=== PATIENT | male | born 1990 | race Two or more races ===

== ENCOUNTER 2017-02-26 19:19 | Emergency (ER) | payer OTHER ==
[~2017-02-26] VITALS: Ht 172.7 cm; Wt 81.6 kg
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
[2017-02-26] MEDS ORDERED: IV NS 0.9% 1,000 ML BAG IV ONE (19:30)
[2017-02-26] MEDS ORDERED: LORAZEPAM INJ 2 MG/ML VIAL IV ONE (19:30)
--- NOTE | 2017-02-26 19:31 | NUR ---
LAURA MAPLE PRODUCTS MAKER AT BEDSIDE FOR EVAL.
[2017-02-26] MEDS ORDERED: LORAZEPAM INJ 2 MG/ML VIAL ONE (19:39)
[2017-02-26] MEDS ORDERED: IV SET PRIMARY 1 EA INFUS.SET MC ONE (19:39)
[2017-02-26] MEDS ORDERED: IV NS 0.9% 1,000 ML ONE (19:39)
--- NOTE | 2017-02-26 19:40 | NUR ---
IV LINE STARTED BLOOD DRAWN AND SENT TO LAB.
[2017-02-26 19:58] LABS: BASOPHILS # (AUTO) 0.1 /CMM (0.0-0.2); BASOPHILS % (AUTO) 0.5 % (0.0-2.0); EOSINOPHILS # (AUTO) 0.1 /CMM (0.0-0.7); EOSINOPHILS % (AUTO) 0.9 % (0.0-6.0); HEMATOCRIT 43 % (39-51); HEMOGLOBIN 14.3 g/dL (13.5-17.5); LYMPHOCYTES # (AUTO) 2.4 /CMM (0.8-4.8); LYMPHOCYTES % (AUTO) 15.6 % (20.0-44.0); MEAN CORPUSCULAR HEMOGLOBIN 29 PG (26.0-33.0); MEAN CORPUSCULAR HGB CONC 34 g/dl (31.0-36.0); MEAN CORPUSCULAR VOLUME 87 fL (80-96); MONOCYTES # (AUTO) 1.1 /CMM (0.1-1.30); MONOCYTES % (AUTO) 7.2 % (2.0-12.0); NEUTROPHILS # (AUTO) 11.9 /CMM (1.8-8.9); NEUTROPHILS % (AUTO) 75.8 % (43.0-81.0); PLATELET COUNT (AUTO) 234 /CMM (150-450); RDW COEFFICIENT OF VARIATION 13.6 (11.5-15.0); WHITE BLOOD COUNT (AUTO) 15.6 K/uL (4.3-11.0)
[2017-02-26 20:08] LABS: CALCIUM, SERUM 9.3 mg/dL (8.5-10.1); POTASSIUM 3.7 mmol/L (3.5-5.1)
[2017-02-26 20:26] LABS: INR 0.93 (0.87-1.13); PROTHROMBIN TIME 9.9 SECS (9.5-12.7)
--- NOTE | 2017-02-26 21:28 | NUR ---
PT TO RADIOLOGY FOR HEAD CT SCAN VIA [facility].
--- NOTE | 2017-02-26 22:34 | NUR ---
Patient discharged to home in stable condition. Written and verbal after care instructions given. Patient verbalizes understanding of instruction.IV removed. Catheter intact and site benign. Pressure and 4x4 applied to site. No bleeding noted.
[2017-02-26 22:38] VITALS: BP 115/56
== END 2017-02-26 22:39 | disposition home or self-care (01) ==
LOC: ER 19:20
DX: G40.909 Epilepsy, unspecified, not intractable, without status epilepticus (principal); R79.1 Abnormal coagulation profile
CPT/HCPCS: 36415; 70450; 80048; 80185; 82542; 85025; 85730; 96374; 99285; A4606; J2060; J7030; Z7610

== ENCOUNTER 2017-07-03 17:26 | Inpatient (IN) | payer OTHER ==
[~2017-07-03] VITALS: Ht 172.7 cm; Wt 74.4 kg
[2017-07-03] MEDS ORDERED: PROPOFOL 100 ML IV ONE ×2 (17:39→21:09)
[2017-07-03] MEDS: PROPOFOL 100 ML IV PRN ×2 (17:45→23:51)
[2017-07-03] MEDS ORDERED: SUCCINYLCHOLINE CHLORIDE 20 MG/ML VIAL IV ONE (18:00)
[2017-07-03] MEDS ORDERED: LEVETIRACETAM (500MG) 1,000 MG in IV NS 0.9% 100 ML IV SCH (18:00)
[2017-07-03] MEDS ORDERED: MIDAZOLAM HCL 100 MG in IV NS 0.9% 80 ML IV PRN (18:00)
[2017-07-03] MEDS ORDERED: ETOMIDATE 2 MG/ML VIAL IV ONE (18:00)
[2017-07-03] MEDS ORDERED: IV NS 0.9% 1,000 ML BAG IV ONE (18:00)
[2017-07-03 18:11] LABS: BASOPHILS # (AUTO) 0.1 /CMM (0.0-0.2); BASOPHILS % (AUTO) 0.5 % (0.0-2.0); EOSINOPHILS % (AUTO) 0.2 % (0.0-6.0); HEMATOCRIT 44 % (39-51); HEMOGLOBIN 14.2 g/dL (13.5-17.5); LYMPHOCYTES # (AUTO) 1.2 /CMM (0.8-4.8); MEAN CORPUSCULAR HEMOGLOBIN 29 PG (26.0-33.0); MEAN CORPUSCULAR HGB CONC 33 g/dl (31.0-36.0); MEAN CORPUSCULAR VOLUME 89 fL (80-96); MONOCYTES # (AUTO) 0.9 /CMM (0.1-1.30); MONOCYTES % (AUTO) 4.3 % (2.0-12.0); NEUTROPHILS # (AUTO) 17.8 /CMM (1.8-8.9); PLATELET COUNT (AUTO) 219 /CMM (150-450); RDW COEFFICIENT OF VARIATION 13.4 (11.5-15.0); RED BLOOD CELL COUNT(AUTO) 4.93 MIL/uL (4.5-6.0)
[2017-07-03 18:14] LABS: APPEARANCE,URINE Clear (CLEAR); BILIRUBIN,URINE Negative (NEGATIVE); BLOOD, URINE Moderate Ery/uL (NEGATIVE); COLOR,URINE Yellow (YELLOW); KETONES,URINE Negative (NEGATIVE); LEUKOCYTE ESTERASE ,URINE Negative (NEGATIVE); NITRITE, URINE Negative (NEGATIVE); PROTEIN,URINE 100 mg/dl (NEGATIVE); UGLUCOSE Negative (NEGATIVE); UROBILINOGEN,URINE 0.2 EU/dL (0.2)
[2017-07-03 18:23] LABS: CALCIUM, SERUM 7.9 mg/dL (8.5-10.1); CARBON DIOXIDE 15 mmol/L (21-32); CHLORIDE 98 mmol/L (98-107); CREATININE 1.2 mg/dL (0.6-1.3); GLUCOSE 168 mg/dL (74-106); POTASSIUM 4.8 mmol/L (3.5-5.1); SODIUM SERUM 134 mmol/L (136-145); UREA NITROGEN, BLOOD 10 mg/dL (7-18)
[2017-07-03] MEDS ORDERED: BACL20TA PO (18:24)
[2017-07-03] MEDS ORDERED: LEVE500T20 PO (18:24)
[2017-07-03] MEDS ORDERED: MIRT15TA7 PO (18:24)
[2017-07-03 18:25] LABS: BACTERIA,URINE Rare /HPF (None Seen); RBC,URINE NONE SEEN /HPF (0-2); SQUAMOUS EPITHELIAL CELL,UR Few /HPF (None Seen); WBC,URINE NONE SEEN /HPF (0-3)
[2017-07-03 18:27] LABS: PROTHROMBIN TIME 10.4 SECS (9.5-12.7)
[2017-07-03 18:29] LABS: ALANINE AMINOTRANSFERASE 18 U/L (12-78); ALKALINE PHOSPHATASE 86 U/L (46-116); ASPARTATE AMINOTRANSFERASE 20 U/L (15-37); BILIRUBIN,DIRECT 0.1 mg/dL (0.0-0.2); BILIRUBIN,TOTAL 0.4 mg/dL (0.2-1.0); TOTAL PROTEIN, SERUM 7.4 g/dL (6.4-8.2)
[2017-07-03 18:30] LABS: TROPONIN I < 0.017 ng/mL (0.00-0.056)
[2017-07-03] MEDS ORDERED: KEY,NONCONTROL,TO KEEP IN PYXI 1 EA MC ONE (19:59)
[2017-07-03 20:02] VITALS: BP 111/64
[2017-07-03] MEDS ORDERED: CALCIUM CHLORIDE 1,000 MG/10 ML DISP.SYRIN IV ONE (20:30)
[2017-07-03] MEDS ORDERED: HYDROCODONE/APAP 5/325MG 1 EACH TABLET PO PRN (20:30)
[2017-07-03] MEDS ORDERED: ZOLPIDEM TARTRATE 5 MG TABLET PO PRN (20:30)
[2017-07-03] MEDS ORDERED: LEVETIRACETAM (500MG) 500 MG in IV NS 0.9% 100 ML IV SCH (20:30)
[2017-07-03] MEDS ORDERED: ONDANSETRON HCL/PF 4 MG/2 ML VIAL IVP PRN (20:30)
[2017-07-03] MEDS ORDERED: Z GUARD REMEDY 2 OZ OINT TP PRN (20:30)
[2017-07-03] MEDS ORDERED: MAGNESIUM HYDROXIDE 30 ML UDC PO PRN (20:30)
[2017-07-03] MEDS ORDERED: ACETAMINOPHEN 325 MG TABLET PO PRN (20:30)
[2017-07-03] MEDS ORDERED: MAG HYDROX/AL HYDROX/SIMETH 30 ML UDC PO PRN (20:30)
[2017-07-03] MEDS ORDERED: Calcium Gluconate 1GM/10ML 4.65 MEQ in IV D5W 50 ML IV ONE (21:30)
[2017-07-03 21:45] VITALS: BP 125/83
[2017-07-03 22:00] VITALS: BP 131/77
[2017-07-03] MEDS ORDERED: ENOXAPARIN SODIUM 40 MG/0.4 ML DISP.SYRIN SQ SCH (22:00)
[2017-07-03 22:05] LABS: ABG BASE EXCESS -1.5 mmol/L; ABG OXYGEN SATURATION 97.8 % (92.0-98.5); ABG PCO2 38.2 mmHg (35.0-45.0); ABG PH 7.397 (7.350-7.450); ABG PO2 120.4 mmHg (75.0-100.0); AaDO2 120.9 mmHg; COHb 0.4 % (0.5-1.5); MetHb 0.8 % (0.0-1.5); O2Hb 96.6 % (94.0-97.0); SITE, ABG Right Brachial
[2017-07-03] MEDS ORDERED: MIRTAZAPINE 15 MG TABLET ONE (22:07)
[2017-07-03] MEDS ORDERED: ENOXAPARIN SODIUM 40 MG/0.4 ML DISP.SYRIN SQ ONE (22:08)
[2017-07-03] MEDS: MIRTAZAPINE 15 MG TABLET PO SCH (22:09)
[2017-07-03] MEDS ORDERED: ACETAMINOPHEN 325 MG TABLET ONE (22:12)
[2017-07-03] MEDS ORDERED: VANCOMYCIN 1 GM VIAL ONE (22:20)
[2017-07-03 22:30] VITALS: BP 129/82
[2017-07-03] MEDS ORDERED: IV NS 0.9% 250 ML IV PRN (22:30)
[2017-07-03] MEDS ORDERED: VANCOMYCIN 1 GM in IV D5W 250 ML IV ONE (22:30)
[2017-07-03] MEDS ORDERED: Calcium Gluconate 0.465 MEQ/ML VIAL IV ONE (22:31)
[2017-07-03 22:55] VITALS: BP 133/86
[2017-07-03 23:00] VITALS: BP 133/86
[2017-07-03 23:06] LABS: CALCIUM, SERUM 8.4 mg/dL (8.5-10.1); MAGNESIUM 2.3 mg/dL (1.8-2.4)
[2017-07-03] MEDS ORDERED: PIPERACILLIN /TAZOBACTAM 3.375 G VIAL IV ONE (23:28)
[2017-07-03] MEDS: PIPERACILLIN /TAZOBACTAM 3.375 G in IV D5W 50 ML IV SCH (23:50)
[2017-07-04] VITALS (27 sets, daily range): BP systolic 109–145; BP diastolic 35–100
[2017-07-04] MEDS: IV NS 0.9% 1,000 ML IV PRN ×2 (00:25→18:51)
[2017-07-04] MEDS: PROPOFOL 100 ML IV PRN ×5 (01:30→10:24)
[2017-07-04] MEDS ORDERED: PIPERACILLIN /TAZOBACTAM 3.375 G VIAL IV ONE (05:02)
[2017-07-04 05:12] LABS: BASOPHILS # (AUTO) 0.1 /CMM (0.0-0.2); BASOPHILS % (AUTO) 0.3 % (0.0-2.0); EOSINOPHILS # (AUTO) 0.1 /CMM (0.0-0.7); EOSINOPHILS % (AUTO) 0.4 % (0.0-6.0); HEMATOCRIT 46 % (39-51); HEMOGLOBIN 15.8 g/dL (13.5-17.5); LYMPHOCYTES # (AUTO) 3.4 /CMM (0.8-4.8); MEAN CORPUSCULAR HEMOGLOBIN 29 PG (26.0-33.0); MEAN CORPUSCULAR HGB CONC 34 g/dl (31.0-36.0); MEAN CORPUSCULAR VOLUME 86 fL (80-96); MONOCYTES # (AUTO) 1.4 /CMM (0.1-1.30); NEUTROPHILS % (AUTO) 72.3 % (43.0-81.0); PLATELET COUNT (AUTO) 205 /CMM (150-450); RDW COEFFICIENT OF VARIATION 14.1 (11.5-15.0); WHITE BLOOD COUNT (AUTO) 17.9 K/uL (4.3-11.0)
[2017-07-04 05:24] LABS: CALCIUM, SERUM 9.1 mg/dL (8.5-10.1); CREATININE 0.7 mg/dL (0.6-1.3); MAGNESIUM 2.6 mg/dL (1.8-2.4); PHOSPHORUS 2.3 mg/dL (2.5-4.9)
[2017-07-04] MEDS: PIPERACILLIN /TAZOBACTAM 3.375 G in IV D5W 50 ML IV SCH ×2 (05:25→11:06)
[2017-07-04] MEDS ORDERED: ENOXAPARIN SODIUM 40 MG/0.4 ML DISP.SYRIN SQ SCH (07:34)
[2017-07-04] MEDS: BACLOFEN (10 MG) 10 MG TABLET PO SCH ×3 (08:03→17:18)
[2017-07-04] MEDS: PANTOPRAZOLE 40 MG TABLET.DR PO SCH (08:03)
[2017-07-04] MEDS ORDERED: LEVETIRACETAM (250 MG) 250 MG TABLET PO SCH (09:00)
[2017-07-04] MEDS: VANCOMYCIN 1.25 GM in IV D5W 500 ML IV SCH ×2 (09:49→17:17)
[2017-07-04] MEDS ORDERED: ACYCLOVIR IV 500 MG in IV D5W 100 ML IV SCH (12:00)
[2017-07-04 12:17] LABS: ABG BASE EXCESS -0.8 mmol/L; ABG PO2 96.5 mmHg (75.0-100.0); COHb 0.3 % (0.5-1.5); MetHb 0.7 % (0.0-1.5); PEEP,BG 5 cm H2O; SITE, ABG Right Radial
[2017-07-04] MEDS ORDERED: FEE PK DOSING 1 MIN EA MC ONE (12:25)
[2017-07-04] MEDS ORDERED: ETOMIDATE 2 MG/ML VIAL IV ONE (13:32)
[2017-07-04] MEDS ORDERED: SUCCINYLCHOLINE CHLORIDE 20 MG/ML VIAL IV ONE (13:32)
[2017-07-04] MEDS: CEFEPIME 2 GM in IV D5W 100 ML IV SCH ×2 (14:04→21:40)
[2017-07-04] MEDS ORDERED: K PHOS NEUTRAL 250 MG TABLET PO ONE (16:00)
[2017-07-04] MEDS ORDERED: MENTHOL/CETYLPYRD (CEPACOL) 1 LOZ LOZENGE PO PRN (18:00)
[2017-07-04] MEDS: LEVETIRACETAM (250 MG) 250 MG TABLET PO SCH (21:38)
[2017-07-04] MEDS: MIRTAZAPINE 15 MG TABLET PO SCH (21:38)
[2017-07-04] MEDS: ACYCLOVIR IV SCH (22:19)
[2017-07-04] MEDS: D5W IV SCH (22:19)
[2017-07-05] VITALS (17 sets, daily range): BP systolic 102–135; BP diastolic 62–115
[2017-07-05] MEDS: VANCOMYCIN 1.25 GM in IV D5W 500 ML IV SCH ×2 (01:03→08:30)
[2017-07-05] MEDS: D5W IV SCH (04:00)
[2017-07-05] MEDS: ACYCLOVIR IV SCH (04:00)
[2017-07-05 05:07] LABS: BASOPHILS % (AUTO) 0.3 % (0.0-2.0); EOSINOPHILS # (AUTO) 0.3 /CMM (0.0-0.7); EOSINOPHILS % (AUTO) 1.9 % (0.0-6.0); HEMATOCRIT 40 % (39-51); HEMOGLOBIN 13.3 g/dL (13.5-17.5); LYMPHOCYTES # (AUTO) 2.7 /CMM (0.8-4.8); LYMPHOCYTES % (AUTO) 16.7 % (20.0-44.0); MEAN CORPUSCULAR HEMOGLOBIN 29 PG (26.0-33.0); MEAN CORPUSCULAR HGB CONC 33 g/dl (31.0-36.0); MEAN CORPUSCULAR VOLUME 87 fL (80-96); MONOCYTES # (AUTO) 1.5 /CMM (0.1-1.30); MONOCYTES % (AUTO) 9.3 % (2.0-12.0); NEUTROPHILS # (AUTO) 11.6 /CMM (1.8-8.9); NEUTROPHILS % (AUTO) 71.8 % (43.0-81.0); PLATELET COUNT (AUTO) 208 /CMM (150-450); RDW COEFFICIENT OF VARIATION 13.8 (11.5-15.0); WHITE BLOOD COUNT (AUTO) 16.1 K/uL (4.3-11.0)
[2017-07-05 05:13] LABS: CALCIUM, SERUM 8.2 mg/dL (8.5-10.1); CREATININE 0.6 mg/dL (0.6-1.3); MAGNESIUM 1.9 mg/dL (1.8-2.4); PHOSPHORUS 3.4 mg/dL (2.5-4.9)
[2017-07-05 05:22] LABS: POTASSIUM 2.9 mmol/L (3.5-5.1)
[2017-07-05] MEDS: CEFEPIME 2 GM in IV D5W 100 ML IV SCH ×3 (05:33→21:01)
[2017-07-05] MEDS: LEVETIRACETAM (250 MG) 250 MG TABLET PO SCH ×2 (08:27→21:02)
[2017-07-05] MEDS: BACLOFEN (10 MG) 10 MG TABLET PO SCH ×3 (08:27→16:46)
[2017-07-05] MEDS: PANTOPRAZOLE 40 MG TABLET.DR PO SCH (08:27)
[2017-07-05] MEDS: NEOMY SULF/BACITRAC ZN/POLY 15 GM TUBE TP SCH (08:31)
[2017-07-05] MEDS: ENOXAPARIN SODIUM 40 MG/0.4 ML DISP.SYRIN SQ SCH (08:31)
[2017-07-05] MEDS: POTASSIUM CHLORIDE 20 MEQ TAB.PRT.SR PO SCH ×3 (10:40→11:48)
[2017-07-05] MEDS: VANCOMYCIN 1.5 GM in IV D5W 500 ML IV SCH (17:37)
[2017-07-05] MEDS: MIRTAZAPINE 15 MG TABLET PO SCH (21:02)
[2017-07-06] MEDS: IV NS 0.9% 1,000 ML IV PRN (01:16)
[2017-07-06] MEDS: VANCOMYCIN 1.5 GM in IV D5W 500 ML IV SCH ×3 (01:16→17:00)
[2017-07-06 04:00] VITALS: BP 114/77
[2017-07-06 04:02] VITALS: BP 114/77
[2017-07-06] MEDS: CEFEPIME 2 GM in IV D5W 100 ML IV SCH ×3 (04:40→20:37)
[2017-07-06 07:45] LABS: CALCIUM, SERUM 8.7 mg/dL (8.5-10.1); CREATININE 0.6 mg/dL (0.6-1.3); POTASSIUM 3.5 mmol/L (3.5-5.1)
[2017-07-06 08:00] VITALS: BP 112/70
[2017-07-06] MEDS: LEVETIRACETAM (250 MG) 250 MG TABLET PO SCH ×2 (09:23→21:00)
[2017-07-06] MEDS: PANTOPRAZOLE 40 MG TABLET.DR PO SCH (09:23)
[2017-07-06] MEDS: NEOMY SULF/BACITRAC ZN/POLY 15 GM TUBE TP SCH (09:23)
[2017-07-06] MEDS: BACLOFEN (10 MG) 10 MG TABLET PO SCH ×3 (09:24→17:28)
[2017-07-06] MEDS: ENOXAPARIN SODIUM 40 MG/0.4 ML DISP.SYRIN SQ SCH (09:26)
[2017-07-06] MEDS ORDERED: LEVE250T2 PO (16:22)
[2017-07-06] MEDS ORDERED: LEVO750T21 PO (16:32)
[2017-07-06 20:00] VITALS: BP 124/78
[2017-07-06] MEDS: MIRTAZAPINE 15 MG TABLET PO SCH (21:06)
[2017-07-07] MEDS ORDERED: VANCOMYCIN 1.25 GM in IV D5W 500 ML IV SCH (01:00)
== END 2017-07-06 22:00 | disposition home or self-care (01) | DRG 720 ==
LOC: ER 17:27 → ICU 20:19 → MEDSG1 07-05 14:17
PROVIDERS: ADMIT Family Medicine; ATTEND Family Medicine
PROC: 0BH17EZ Insertion of Endotracheal Airway into Trachea, Via Natural or Artificial Opening (ICD-10-PCS; principal; 2017-07-03)
PROC: 5A1945Z Respiratory Ventilation, 24-96 Consecutive Hours (ICD-10-PCS; principal; 2017-07-03)
DX: A41.9 Sepsis, unspecified organism (principal); J96.00 Acute respiratory failure, unspecified whether with hypoxia or hypercapnia; J69.0 Pneumonitis due to inhalation of food and vomit; E87.2 Acidosis; G40.901 Epilepsy, unspecified, not intractable, with status epilepticus; E87.1 Hypo-osmolality and hyponatremia; J15.6 Pneumonia due to other Gram-negative bacteria; J15.9 Unspecified bacterial pneumonia; Z91.14 Patient's other noncompliance with medication regimen; Z83.3 Family history of diabetes mellitus; Z82.49 Family history of ischemic heart disease and other diseases of the circulatory system; Z79.899 Other long term (current) drug therapy; Z87.820 Personal history of traumatic brain injury; G93.89 Other specified disorders of brain; G82.20 Paraplegia, unspecified; F17.210 Nicotine dependence, cigarettes, uncomplicated; E87.6 Hypokalemia; E87.0 Hyperosmolality and hypernatremia; R65.20 Severe sepsis without septic shock; W34.00XS Accidental discharge from unspecified firearms or gun, sequela; F12.90 Cannabis use, unspecified, uncomplicated; G81.91 Hemiplegia, unspecified affecting right dominant side; E83.51 Hypocalcemia; E78.1 Pure hyperglyceridemia; F17.200 Nicotine dependence, unspecified, uncomplicated
CPT/HCPCS: 36415; 36600; 70450-TC; 71010-TC; 80048-TC; 80061-TC; 80074; 80076-TC; 80202-TC; 80305; 81000-TC; 82310-TC; 82330; 82803-TC; 83605-TC; 83735-TC; 84100-TC; 84484-TC; 85025-TC; 85730-TC; 87040-TC; 87070-TC; 87081-TC; 87086-TC; 87186-TC; 94002-TC; 94003-TC; 94799-TC; A4606; A6402; G0480; J0133; J0330; J0610; J0692; J1650; J1953; J2250; J2543; J3370; J3490; J7030; J7050; J7060; Z7610

== ENCOUNTER 2018-03-28 08:52 | Inpatient (IN) | payer OTHER ==
[2018-03-28] VITALS (22 sets, daily range): BP systolic 100–127; BP diastolic 60–86
[~2018-03-28] VITALS: Ht 172.7 cm; Wt 81.6 kg
[~2018-03-28 08:52] MED LIST: BACL20TA PO; LEVE250T2 PO; LEVO750T21 PO; MIRT15TA7 PO
[2018-03-28] MEDS ORDERED: IV NS 0.9% 1,000 ML BAG IV ONE (09:00)
[2018-03-28] MEDS ORDERED: LEVETIRACETAM (500MG) 500 MG in IV NS 0.9% 100 ML IV ONE (09:00)
--- NOTE | 2018-03-28 09:00 | NUR ---
[id number] FROM HOME: S/P WITNESSED SEIZURE, STATUS EPILEPTICUS BILATERAL RHONCHI NOTED ON ASSESSMENT. VERSED 5 GIVEN IN FIELD. SEIZURE PRECAUTION IS IN PLACE. PLACED ON THE MONITOR. DR MILIAN AT BS FOR EVAL.
--- NOTE | 2018-03-28 09:02 | NUR ---
Dr Lui made aware that patient is having a seizure. verbally ordered ativan 1mg ivp.
[2018-03-28] MEDS ORDERED: LORAZEPAM INJ 2 MG/ML VIAL ONE (09:04)
[2018-03-28 09:05] LABS: BASOPHILS # (AUTO) 0.1 /CMM (0.0-0.2); BASOPHILS % (AUTO) 0.5 % (0.0-2.0); EOSINOPHILS % (AUTO) 2.6 % (0.0-6.0); HEMATOCRIT 46 % (39-51); HEMOGLOBIN 15.2 g/dL (13.5-17.5); MEAN CORPUSCULAR HGB CONC 33 g/dl (31.0-36.0); MEAN CORPUSCULAR VOLUME 85 fL (80-96); MONOCYTES # (AUTO) 1.2 /CMM (0.1-1.30); MONOCYTES % (AUTO) 7.2 % (2.0-12.0); NEUTROPHILS # (AUTO) 12.6 /CMM (1.8-8.9); NEUTROPHILS % (AUTO) 77.7 % (43.0-81.0); PLATELET COUNT (AUTO) 264 /CMM (150-450); RDW COEFFICIENT OF VARIATION 13.1 (11.5-15.0); RED BLOOD CELL COUNT(AUTO) 5.34 MIL/uL (4.5-6.0); WHITE BLOOD COUNT (AUTO) 16.3 K/uL (4.3-11.0)
--- NOTE | 2018-03-28 09:05 | NUR ---
Miki english in [facility] - 03/30/18 at [address] Lui verbally ordered 1mg IVP
[2018-03-28 09:15] LABS: CALCIUM, SERUM 8.6 mg/dL (8.5-10.1); CREATININE 1.2 mg/dL (0.6-1.3); POTASSIUM 3.7 mmol/L (3.5-5.1)
--- NOTE | 2018-03-28 09:16 | NUR ---
PATIENT TRANSPORTED FOR CT HEAD
[2018-03-28 09:21] LABS: ALBUMIN 4.1 g/dL (3.4-5.0); BILIRUBIN,TOTAL 0.2 mg/dL (0.2-1.0); TOTAL PROTEIN, SERUM 8.6 g/dL (6.4-8.2)
[2018-03-28] MEDS ORDERED: LEVE1000 PO (09:35)
[2018-03-28] MEDS ORDERED: PROPOFOL 100 ML IV ONE (09:44)
[2018-03-28] MEDS ORDERED: PROPOFOL 100 ML ONE (09:48)
--- NOTE | 2018-03-28 09:50 | NUR ---
RT NOTE: LATE ENTRY- PATIENT WAS ORALLY INTUBATED BY WITH 7.5 ETT SECURED AT 23CM MID LIP LINE. BILATERAL B/S NOTED. EQUAL CHEST RISE. POSITIVE COLOR CHANGE ON CAPNOMETER. PATIENT WAS PLACED ON PB 840 VENT WITH SETTINGS PER MD ORDER. ALARMS SET AND AUDIBLE. SUCTIONED LARGE AMOUNTS OF THIN CLEAR FROTHY SECRETIONS. AMBU BAG AT [facility].
[2018-03-28] MEDS ORDERED: ETOMIDATE 2 MG/ML VIAL IV ONE ×2 (10:00→12:51)
[2018-03-28] MEDS ORDERED: SUCCINYLCHOLINE CHLORIDE 20 MG/ML VIAL IV ONE ×2 (10:00→12:51)
[2018-03-28] MEDS ORDERED: PIPERACILLIN /TAZOBACTAM 3.375 G in IV D5W 50 ML IV ONE (10:30)
[2018-03-28 10:38] LABS: APPEARANCE,URINE Slightly Cloudy (CLEAR); BILIRUBIN,URINE Negative (NEGATIVE); BLOOD, URINE Moderate Ery/uL (NEGATIVE); COLOR,URINE Yellow (YELLOW); KETONES,URINE Negative (NEGATIVE); LEUKOCYTE ESTERASE ,URINE Negative (NEGATIVE); NITRITE, URINE Negative (NEGATIVE); PROTEIN,URINE 30 mg/dl (NEGATIVE); UGLUCOSE Negative (NEGATIVE); UROBILINOGEN,URINE 0.2 EU/dL (0.2)
--- NOTE | 2018-03-28 10:52 | NUR ---
REPORT GIVEN TO GERARD GAMBOA FOR DARVIN
[2018-03-28 10:58] LABS: BACTERIA,URINE Few /HPF (None Seen); SQUAMOUS EPITHELIAL CELL,UR Rare /HPF (None Seen); WBC,URINE 0-2 /HPF (0-3)
[2018-03-28 10:59] LABS: URINE AMORPHOUS URATE Moderate /HPF (None Seen)
[2018-03-28] MEDS ORDERED: PROPOFOL 100 ML IV SCH (11:06)
--- NOTE | 2018-03-28 11:10 | NUR ---
RN INITIAL NOTES RECEIVED PT FROM ER VIA [facility]. PT INTUBATED, ON VENT, SETTINGS FOLLOWS: AC16, TV 550, FI02 100%, PEEP+5. NO RESPIRATORY DISTRESS NOTED. NO SOB NOTED. NO SIGNS OF PAIN NOTED. IV LINES IN PLACE. ON DIPRIVAN AT 50MCG/KG/MIN. OG INSERTED. PLACEMENT VERIFIED BY [address] NO HEMATURIA NOTED. BODY ASSESSMENT DONE. PICTURES TAKEN AND PLACED IN THE CHART. PT CONNECTED TO MONITOR. PADDED SIDE RAILS ON SEIZURE PRECAUTION. JERKING MOVEMENT NOTED WHILE TRANSFERRING FROM [facility] TO BED. AGNIESZKA AVILEZ NP AWARE OF ADMISSION. AWAITING FOR ORDERS. WILL CLOSELY MONITOR.
[2018-03-28 11:17] LABS: ABG BASE EXCESS -1.8 mmol/L; ABG PCO2 43.1 mmHg (35.0-45.0); ABG PH 7.358 (7.350-7.450); ABG PO2 135.3 mmHg (75.0-100.0); AaDO2 389.9 mmHg; COHb 1.9 % (0.5-1.5); MetHb 0.5 % (0.0-1.5); O2Hb 95.6 % (94.0-97.0); SITE, ABG Right Radial; VENT MODE, BG NRB MASK
[2018-03-28] MEDS ORDERED: Z GUARD REMEDY 2 OZ OINT TP PRN ×2 (11:30→13:30)
[2018-03-28] MEDS ORDERED: ONDANSETRON HCL/PF 4 MG/2 ML VIAL IVP PRN (11:30)
[2018-03-28] MEDS ORDERED: ACETAMINOPHEN 325 MG TABLET PO PRN (11:30)
[2018-03-28] MEDS ORDERED: ACETAMINOPHEN 650 MG/SUPP.RECT RC PRN (11:30)
[2018-03-28] MEDS ORDERED: MAGNESIUM HYDROXIDE 30 ML UDC PO PRN (11:30)
[2018-03-28] MEDS ORDERED: MAG HYDROX/AL HYDROX/SIMETH 30 ML UDC PO PRN (11:30)
[2018-03-28] MEDS ORDERED: ZOLPIDEM TARTRATE 5 MG TABLET PO PRN (11:30)
[2018-03-28] MEDS ORDERED: PROPOFOL 100 ML IV PRN ×2 (11:30)
[2018-03-28] MEDS ORDERED: LORAZEPAM INJ 2 MG/ML VIAL IV PRN (11:30)
[2018-03-28 11:49] LABS: ABG BASE EXCESS -1.8 mmol/L; ABG OXYGEN SATURATION 98.7 % (92.0-98.5); ABG PCO2 43.6 mmHg (35.0-45.0); ABG PH 7.355 (7.350-7.450); ABG PO2 215.4 mmHg (75.0-100.0); MetHb 0.9 % (0.0-1.5); O2Hb 97.8 % (94.0-97.0); PEEP,BG 5 cm H2O; SITE, ABG Right Radial; VT, ABG 550 mL
--- NOTE | 2018-03-28 12:09 | NUR ---
FIO2 DECREASED FROM 100% TO 60% DUE TO PAO2 215 AND SPO2 100%. Addendum: 03/28/18 at 1210 by LORI VALDOVINOS RT Amended: Links added.
[2018-03-28] MEDS ORDERED: FEE PK DOSING 1 MIN EA MC ONE (12:38)
[2018-03-28] MEDS: PROPOFOL 100 ML IV PRN ×4 (12:43→22:19)
--- NOTE | 2018-03-28 12:46 | NUR ---
@ 1145 PT RECEIVED FROM ER WITH FF. SETTINGS ORDER: AC 16, VT 550, 100%, PEPP 5. 7.5 ET TUBE SECURED WITH ANCHOR FAST SYSTEM @ 23 CM [id number]. BREATH SOUNDS CLEAR BILATERAL WITH SYMMETRICAL CHEST RISE. Addendum: 03/28/18 at 1249 by LORI VALDOVINOS RT Amended: Links added.
[2018-03-28] MEDS: PANTOPRAZOLE 40 MG VIAL IV SCH (12:48)
[2018-03-28] MEDS: ENOXAPARIN SODIUM 40 MG/0.4 ML DISP.SYRIN SQ SCH (12:51)
[2018-03-28] MEDS: IV NS 0.9% 1,000 ML IV PRN (12:52)
[2018-03-28] MEDS ORDERED: VANCOMYCIN 1 GM in IV NS 0.9% 250 ML IV ONE (13:00)
[2018-03-28 13:02] LABS: PHOSPHORUS 3.7 mg/dL (2.5-4.9)
[2018-03-28 13:15] LABS: INR 0.88 (0.85-1.15)
[2018-03-28] MEDS: LEVETIRACETAM (500MG) 1,000 MG in IV NS 0.9% 100 ML IV SCH (15:08)
[2018-03-28] MEDS: IPRATROPIUM NEB FS 0.5 MG/2.5 ML AMPUL.NEB NEB SCH ×3 (15:44→23:14)
[2018-03-28] MEDS: ALBUTEROL HALF STRENGTH 1.25 MG/3 ML VIAL.NEB NEB SCH ×3 (15:44→23:14)
[2018-03-28] MEDS: ACETYLCYSTEINE 10% SOLN 400 MG/4 ML VIAL NEB SCH ×2 (15:44→23:14)
[2018-03-28] MEDS: PIPERACILLIN /TAZOBACTAM 3.375 G in IV D5W 50 ML IV SCH ×2 (18:39→23:50)
--- NOTE | 2018-03-28 18:57 | NUR ---
RN CLOSING NOTES PT REMAINS INTUBATED, ON VENT. NO RESPIRATORY DISTRESS NOTED. NO SOB NOTED. IV LINES IN PLACE. PT ON DIPRIVAN. PT SEDATED. FC IN PLACE. KEPT CLEAN AND DRY. REPOSITIONED Q2. PADDED SIDERAILS ON. WILL ENDORSE FOR CONTINUITY OF CARE.
--- NOTE | 2018-03-28 19:30 | NUR ---
Received patient awake and trying to sit up in bed.Patient orally intubated and Diprivan gtt infusing at 60 mcg and will titrate as to sedation.Bilateral soft wrist restraints on for safety. No respiratory distress noted.With OGT and placement verified by auscultation.Remain on NPO status with IVF infusing.FC to gravity.Turned and repositioned.Seizure precaution observed.
[2018-03-28] MEDS: VANCOMYCIN 0.75 GM in IV D5W 250 ML IV SCH (21:03)
--- NOTE | 2018-03-28 21:28 | NUR ---
PT RECEIVED INTUBATED 7.5 ETT SECURED AT 24CM AT THE LIP WITH BITE BLOCK. NO RESP DISTRESS NOTED. TOLERATING VENT SETTINGS. VENT ALARMS SET AND AUDIBLE. AMBU BAG AT BEDSIDE. VENT PLUGGED INTO RED OUTLET. WILL CONTINUE TO MONITOR. Addendum: 03/28/18 at 2130 by LIA LUNA RT Amended: Links added.
[2018-03-29] VITALS (29 sets, daily range): BP systolic 110–141; BP diastolic 28–93
--- NOTE | 2018-03-29 | NUR ---
Resting vs stable.Turned and repositioned.
[2018-03-29] MEDS: LEVETIRACETAM (500MG) 1,000 MG in IV NS 0.9% 100 ML IV SCH ×2 (01:00→12:15)
[2018-03-29] MEDS: PROPOFOL 100 ML IV PRN ×3 (01:07→06:00)
--- NOTE | 2018-03-29 01:25 | NUR ---
Patient waking up and try to sit up in bed very agitated.Diprivan gtt titrated accordingly as to sedation.
[2018-03-29] MEDS: IPRATROPIUM NEB FS 0.5 MG/2.5 ML AMPUL.NEB NEB SCH ×6 (03:01→23:27)
[2018-03-29] MEDS: ALBUTEROL HALF STRENGTH 1.25 MG/3 ML VIAL.NEB NEB SCH ×6 (03:01→23:27)
--- NOTE | 2018-03-29 04:00 | NUR ---
Patient sedated.VS stable.Bathed and complete linens changed.Turned and repositioned. Urine specimen collected and given to laboratory engineer.
[2018-03-29 04:48] LABS: BASOPHILS # (AUTO) 0.1 /CMM (0.0-0.2); BASOPHILS % (AUTO) 0.4 % (0.0-2.0); EOSINOPHILS % (AUTO) 1.1 % (0.0-6.0); HEMATOCRIT 38 % (39-51); LYMPHOCYTES # (AUTO) 2.1 /CMM (0.8-4.8); MEAN CORPUSCULAR HGB CONC 34 g/dl (31.0-36.0); MEAN CORPUSCULAR VOLUME 86 fL (80-96); MONOCYTES # (AUTO) 1.4 /CMM (0.1-1.30); MONOCYTES % (AUTO) 7.4 % (2.0-12.0); NEUTROPHILS # (AUTO) 14.9 /CMM (1.8-8.9); NEUTROPHILS % (AUTO) 80.1 % (43.0-81.0); PLATELET COUNT (AUTO) 211 /CMM (150-450); RDW COEFFICIENT OF VARIATION 13.7 (11.5-15.0); RED BLOOD CELL COUNT(AUTO) 4.46 MIL/uL (4.5-6.0); WHITE BLOOD COUNT (AUTO) 18.6 K/uL (4.3-11.0)
[2018-03-29 04:51] LABS: APPEARANCE,URINE CLEAR (CLEAR); BILIRUBIN,URINE NEGATIVE (NEGATIVE); BLOOD, URINE 3+ Ery/uL (NEGATIVE); COLOR,URINE YELLOW (YELLOW); KETONES,URINE NEGATIVE (NEGATIVE); LEUKOCYTE ESTERASE ,URINE NEGATIVE (NEGATIVE); NITRITE, URINE NEGATIVE (NEGATIVE); PH,URINE 5.5 (5.0-8.0); PROTEIN,URINE TRACE mg/dl (NEGATIVE); UGLUCOSE NEGATIVE (NEGATIVE); UROBILINOGEN,URINE 0.2 EU/dL (0.2)
[2018-03-29] MEDS: VANCOMYCIN 0.75 GM in IV D5W 250 ML IV SCH ×3 (05:00→20:40)
[2018-03-29 05:09] LABS: ALBUMIN 3.2 g/dL (3.4-5.0); BILIRUBIN,TOTAL 0.6 mg/dL (0.2-1.0); CALCIUM, SERUM 8.3 mg/dL (8.5-10.1); CREATININE 0.8 mg/dL (0.6-1.3); POTASSIUM 3.3 mmol/L (3.5-5.1); TOTAL PROTEIN, SERUM 6.6 g/dL (6.4-8.2)
[2018-03-29 05:13] LABS: THYROID STIMULATING HORMONE 0.994 uIU/mL (0.358-3.74)
[2018-03-29 05:14] LABS: BACTERIA,URINE Few /HPF (None Seen); RBC,URINE 81-100 /HPF (0-2); SQUAMOUS EPITHELIAL CELL,UR Few /HPF (None Seen); WBC,URINE 0-2 /HPF (0-3)
[2018-03-29] MEDS: PIPERACILLIN /TAZOBACTAM 3.375 G in IV D5W 50 ML IV SCH ×3 (06:00→17:23)
[2018-03-29] MEDS: IV NS 0.9% 1,000 ML IV PRN ×2 (06:33→17:23)
--- NOTE | 2018-03-29 07:05 | NUR ---
Patient remains sedated on Diprivan @ 90 mcg.VS stable.SR.Tolerating vent settings. Awaiting weaning trials today.Turned and repositioned.No distress noted.Report given to incoming RN for continuity of care.
--- NOTE | 2018-03-29 07:10 | NUR ---
RN INITIAL NOTES RECEIVED PT INTUBATED, ON VENT. NO RESPIRATORY DISTRESS NOTED. NO SOB NOTED. NO SIGNS OF PAIN NOTED. PT SEDATED, ON DIPRIVAN AT 90MCG/KG/MIN. OG IN PLACE, CLAMPED. IV LINES IN PLACE. IVF INFUSING. FC IN PLACE. NO HEMATURIA NOTED. BLE ELEVATED. REPOSITIONED. PT FOR WEANING TRIALS TODAY. WILL MONITOR.
[2018-03-29] MEDS: ACETYLCYSTEINE 10% SOLN 400 MG/4 ML VIAL NEB SCH ×3 (07:38→23:27)
--- NOTE | 2018-03-29 07:38 | NUR ---
RT PT RECEIVED ORALLY INTUBATED WITH A 7.5 ETT SECURED AT 24CM AT THE LIP LINE. PT IS CURRENTLY SEDATED AT THIS TIME, BUT RESPONDS TO STIMULI WHEN SX'D. VENT IS PLUGGED INTO RED OUTLET. VENT ALARMS ARE SET AND AUDIBLE WITH BVM BY BEDSIDE. THERMODYNAMIC PHYSICIST CUFF PRESSURE NOTED. NO RESPIRATORY DISTRESS NOTED AT THIS TIME, WILL CONTINUE TO MONITOR. Addendum: 03/29/18 at 0807 by WILLOW ANDRADE RT Amended: Links added.
[2018-03-29] MEDS: PANTOPRAZOLE 40 MG VIAL IV SCH (08:17)
[2018-03-29] MEDS: ENOXAPARIN SODIUM 40 MG/0.4 ML DISP.SYRIN SQ SCH (08:20)
[2018-03-29 09:00] LABS: ABG BASE EXCESS -0.8 mmol/L; ABG OXYGEN SATURATION 94.7 % (92.0-98.5); ABG PCO2 39.7 mmHg (35.0-45.0); ABG PH 7.398 (7.350-7.450); AaDO2 90.3 mmHg; COHb 0.3 % (0.5-1.5); MetHb 0.7 % (0.0-1.5); O2Hb 93.8 % (94.0-97.0); PEEP,BG 5 cm H2O; SITE, ABG Right Radial; VENT MODE, BG SIMV 4 / PS 12; VT, ABG 550 mL
--- NOTE | 2018-03-29 09:10 | NUR ---
RN NOTES PT OFF SEDATION. PT A/O, ABLE TO FOLLOW SIMPLE COMMANDS. PT ON SIMV MODE. ABG DONE. DR CHANG IN THE UNIT. AWARE OF ABG RESULT. MD ORDERED EXTUBATION. PT EXTUBATED. PLACED ON 02 AT 4LPM VIA NC. KEPT HOB ELEVATED. SO SOB NOTED. WILL CONTINUE TO MONITOR.
--- NOTE | 2018-03-29 10:45 | NUR ---
RN NOTES SEEN AND EXAMINED BY DR. HORNER. PT A/OX3-4. SP EXTUBATION. NO SEIZURE ACTIVITY NOTED. MD AWARE OF H&P, CURRENT MEDS, LAB VALUES AND IMAGING STUDIES. NO ORDER MADE. WILL MONITOR.
--- NOTE | 2018-03-29 11:45 | NUR ---
WOUND CARE CONSULT: PT PRESENTS WITH SOME DRY ABRASIONS TO FACE PRESENT ON ADMISSION. PT ABLE TO ASSIST WITH TURNING AND REPOSITIONING IN BED. PT CONTINENT AT THIS TIME WITH GARNER CATH IN PLACE. CURRENT MIKAELA SCORE IS 15. ALL SKIN PROTECTION MEASURES IN PLACE AND DISCUSSED WITH NURSING STAFF. WILL SEE PRN. BISHOP IN AGREEMENT WITH PLAN OF CARE. Addendum: 03/29/18 at 1146 by DIMAS MOLINA WNDNU Amended: Links added.
[2018-03-29] MEDS: POTASSIUM CL. PREMIX PERIPHER. 50 ML IV SCH ×2 (15:20→16:21)
--- NOTE | 2018-03-29 18:35 | NUR ---
RN CLOSING NOTES PT A/O, ON 02 AT 4LPM VIA NC. NO RESPIRATORY DISTRESS NOTED. NO SOB NOTED. DENIES ANY PAIN. KEPT COMFORTABLE. REPOSITIONED Q2. ALL NEEDS ATTENDED AND MET. WILL ENDORSE FOR CONTINUITY OF CARE.
[2018-03-29] MEDS: HYDROCODONE/APAP 5/325MG 1 EACH TABLET PO PRN (23:07)
[2018-03-30] VITALS (18 sets, daily range): BP systolic 80–136; BP diastolic 21–80
[2018-03-30] MEDS: PIPERACILLIN /TAZOBACTAM 3.375 G in IV D5W 50 ML IV SCH ×5 (00:07→23:25)
[2018-03-30] MEDS: LEVETIRACETAM (500MG) 1,000 MG in IV NS 0.9% 100 ML IV SCH ×2 (00:10→13:22)
[2018-03-30] MEDS: IPRATROPIUM NEB FS 0.5 MG/2.5 ML AMPUL.NEB NEB SCH ×6 (03:36→23:11)
[2018-03-30] MEDS: ALBUTEROL HALF STRENGTH 1.25 MG/3 ML VIAL.NEB NEB SCH ×6 (03:36→23:11)
[2018-03-30] MEDS: VANCOMYCIN 1 GM in IV D5W 250 ML IV SCH ×3 (04:39→20:49)
[2018-03-30 04:43] LABS: CALCIUM, SERUM 8.2 mg/dL (8.5-10.1); CREATININE 0.6 mg/dL (0.6-1.3); POTASSIUM 3.7 mmol/L (3.5-5.1)
[2018-03-30] MEDS: ACETYLCYSTEINE 10% SOLN 400 MG/4 ML VIAL NEB SCH ×3 (07:40→23:11)
--- NOTE | 2018-03-30 07:46 | NUR ---
RN NOTES RECEIVED PT A&0X1, ON 2L NC SATING WELL NO SOB OR DISTRESS. SR ON THE TELE AYAKA. R HAND 2OG, L HAND 18G IV INTACT WITH IVF AT 75ML/HR. GARNER DRAINING TO GRAVITY. BED LOCKED AND IN LOWEST POSITION, CALL LIGHT WITHIN REACH, SIDE RAILS UPX3, WILL CONT TO AYAKA.
[2018-03-30] MEDS: PANTOPRAZOLE 40 MG VIAL IV SCH (08:59)
[2018-03-30] MEDS: ENOXAPARIN SODIUM 40 MG/0.4 ML DISP.SYRIN SQ SCH (09:04)
[2018-03-30] MEDS: IV NS 0.9% 1,000 ML IV PRN (11:54)
--- NOTE | 2018-03-30 15:37 | NUR ---
RN NOTES PT TRANSFERRED TO 3RD FLOOR IN STABLE CONDITION, REPORT GIVEN TO JACKIE.
--- NOTE | 2018-03-30 15:48 | NUR ---
RN OPENING NOTES RECEIVED PT. IN BED A&OX1-2. PT. BREATHING ON OXYGEN AT 2L/MIN VIA NASAL CANNULA. NO S/S OF ACUTE DISTRESS. IV FLUIDS RECEIVED WITH PATIENT. IV ACCESS ON RIGHT HAND IS PAINFUL PER PT. WITH IV FLUSH, RIGHT WRIST LOOKS RED SWOLLEN, AND PAINFUL TO MOVE WRIST. LEFT HAND IV ACCESS IS PAINFUL WITH IV FLUSH PER PT. WILL CONTINUE TO ASSESS AND MONITOR. 5 LEAD FOR TELE MONITORING WAS APPLIED. ALL NEEDS MET. WILL CONTINUE TO ASSESS AND MONITOR. CALL LIGHT WITHIN REACH. REPORT WAS GIVEN VIA PHONE BEFORE PT. WAS MOVED TO ROOM 323 BED 2.
--- NOTE | 2018-03-30 19:15 | NUR ---
RN CLOSING NOTES PT. IS IN BED A&OX1-2, PT. WAS REORIENTED. PT.'S MOTHER WAS CALLED AT THE BEDSIDE. PT. SPOKE WITH HID MOTHER ON THE TELEPHONE. BREATHING UNLABORED, ON OXYGEN AT 2L/MIN VIA NASAL CANNULA. NO SOB. NO S/S OF ACUTE DISTRESS. GARNER CATHETER HAS 900 CC OF CLEAR, AND YELLOW URINE OUTPUT. IV FLUIDS RUNNING AT 100 ML/HR AT THIS TIME. BED IS IN LOWEST, AND LOCKED POSITION. 2 SIDE RAILS UP, AND PADDED. CALL LIGHT IS WITHIN REACH. ALL NEEDS MET. WILL ENDORSE REPORT TO NURSE.
--- NOTE | 2018-03-30 19:48 | NUR ---
RECIEVED MR. MONTENEGRO ALERT AND ORIENTATED X3. SPEECH NOTED HE IS NOT ABLE TO FORM CLEAR WORDS, BUT ABLE TO COMMUNICATE AND MAKE HIS NEEDS KNOWN. AMBULATED WITH THE NURSE TO THE BATHROOM ASSISTED HIM TO THE TOILET AND A LARGE SOFT BROWN BM. NOTED HIS GAIT THERE IS A LIMP D/T RIGHT SIDED WEAKNESS, NEEDING ASSIST FOR SAFETY. RETURNED TO THE BED AND HE WAS ABLE TO GET SELF BACK INTO BED. PADDED SIDE RAILS AND BED ALARM ON.
[2018-03-30 21:53] LABS: BASOPHILS % (AUTO) 0.2 % (0.0-2.0); EOSINOPHILS % (AUTO) 3.5 % (0.0-6.0); HEMATOCRIT 37 % (39-51); HEMOGLOBIN 12.3 g/dL (13.5-17.5); LYMPHOCYTES # (AUTO) 2.9 /CMM (0.8-4.8); LYMPHOCYTES % (AUTO) 21.1 % (20.0-44.0); MEAN CORPUSCULAR HGB CONC 34 g/dl (31.0-36.0); MEAN CORPUSCULAR VOLUME 87 fL (80-96); MONOCYTES % (AUTO) 7.4 % (2.0-12.0); NEUTROPHILS # (AUTO) 9.5 /CMM (1.8-8.9); NEUTROPHILS % (AUTO) 67.8 % (43.0-81.0); PLATELET COUNT (AUTO) 207 /CMM (150-450)
[2018-03-31] VITALS: BP 106/77
[2018-03-31] MEDS: LEVETIRACETAM (500MG) 1,000 MG in IV NS 0.9% 100 ML IV SCH ×2 (01:01→13:47)
[2018-03-31] MEDS: ALBUTEROL HALF STRENGTH 1.25 MG/3 ML VIAL.NEB NEB SCH ×6 (02:40→23:07)
[2018-03-31] MEDS: IPRATROPIUM NEB FS 0.5 MG/2.5 ML AMPUL.NEB NEB SCH ×6 (02:40→23:06)
[2018-03-31 04:00] VITALS: BP_SYST 101; BP_SYST 134; BP_DIAS 71; BP_DIAS 77
--- NOTE | 2018-03-31 04:09 | NUR ---
CLOSING NOTES: MOTHER ANS SISTER CAME TO VISIT PATIENT @ 2100. PATIENT SMILING AND CONVERSING WITH THEM. CHANGES HIS OWN POSITION. AMBULATED TO THE BATHROOM WITH ONE NURSE ASSST, NOTED A LIMP WITH AMBULATION, D/T RT SIDED WEAKNESS AND DEFICENT, HE DID VERY WELL. BM SOFT AND BROWN. ABLE TO GET HIMSELF INTO BED WITH NURSE STANDBY. GARNER DRAINAGE CLEAR TYRONE. ENJOYED PM SNACK 100%
[2018-03-31 04:19] LABS: BASOPHILS # (AUTO) 0.2 /CMM (0.0-0.2); BASOPHILS % (AUTO) 1.6 % (0.0-2.0); EOSINOPHILS % (AUTO) 3.5 % (0.0-6.0); HEMATOCRIT 38 % (39-51); HEMOGLOBIN 12.9 g/dL (13.5-17.5); LYMPHOCYTES # (AUTO) 2.9 /CMM (0.8-4.8); LYMPHOCYTES % (AUTO) 24.4 % (20.0-44.0); MEAN CORPUSCULAR HGB CONC 34 g/dl (31.0-36.0); MEAN CORPUSCULAR VOLUME 85 fL (80-96); MONOCYTES % (AUTO) 8.2 % (2.0-12.0); NEUTROPHILS # (AUTO) 7.3 /CMM (1.8-8.9); NEUTROPHILS % (AUTO) 62.3 % (43.0-81.0); PLATELET COUNT (AUTO) 233 /CMM (150-450); RDW COEFFICIENT OF VARIATION 13.3 (11.5-15.0); RED BLOOD CELL COUNT(AUTO) 4.48 MIL/uL (4.5-6.0); WHITE BLOOD COUNT (AUTO) 11.7 K/uL (4.3-11.0)
[2018-03-31 04:31] LABS: CALCIUM, SERUM 8.7 mg/dL (8.5-10.1); CREATININE 0.6 mg/dL (0.6-1.3); POTASSIUM 3.7 mmol/L (3.5-5.1)
[2018-03-31] MEDS: VANCOMYCIN 1 GM in IV D5W 250 ML IV SCH ×3 (04:53→22:02)
[2018-03-31] MEDS: PIPERACILLIN /TAZOBACTAM 3.375 G in IV D5W 50 ML IV SCH ×4 (06:20→23:58)
[2018-03-31] MEDS: ACETYLCYSTEINE 10% SOLN 400 MG/4 ML VIAL NEB SCH ×2 (07:03→23:07)
--- NOTE | 2018-03-31 07:32 | NUR ---
SURGICAL SCRUB TECHNICIAN OPENING NOTE RECEIVED BEDSIDE REPORT ON THE PATIENT. PATIENT IS A/O X2, COOPERATIVE, PRESENTS WITH GARBLED SPEECH. PATIENT IS IN BED, BED IS LOCKED IN LOWEST POSITION, SIDE RAILS UP X3, BED ALARM IS ON. PATIENT IS AMBULATORY WITH ASSIST. EXTERNAL MONITOR READING SR 69.CALL LIGHT WITHIN REACH. EDUCATED TO CALL FOR ASSISTANCE USING THE CALL LIGHT AND VERBALIZED UNDERSTANDING. DENIES PAIN/DISCOMFORT AT THIS TIME. ALL NEEDS ARE MET. CHEST RISING EQUALLY/BILATERALLY. SPO2 98% ON ROOM AIR. WILL CONTINUE TO ASSESS/MONITOR THROUGHOUT THE SHIFT.
[2018-03-31 08:00] VITALS: BP 106/66
[2018-03-31] MEDS: PANTOPRAZOLE 40 MG VIAL IV SCH (10:13)
[2018-03-31] MEDS: ENOXAPARIN SODIUM 40 MG/0.4 ML DISP.SYRIN SQ SCH (10:23)
[2018-03-31 16:00] VITALS: BP 109/72
[2018-03-31] MEDS: IV NS 0.9% 1,000 ML IV PRN (16:08)
[2018-03-31] MEDS: LACTOBACILLUS RHAMNOSUS GG 1 EACH CAP.SPRINK PO SCH (17:48)
--- NOTE | 2018-03-31 19:04 | NUR ---
MS RN CLOSING NOTE PATIENT IS A/O X2, COOPERATIVE, PRESENTS WITH GARBLED SPEECH. PATIENT IS IN BED, BED IS LOCKED IN LOWEST POSITION, SIDE RAILS UP X3, BED ALARM IS ON. PATIENT IS AMBULATORY WITH ASSIST. CALL LIGHT WITHIN REACH. EDUCATED TO CALL FOR ASSISTANCE USING THE CALL LIGHT AND VERBALIZED UNDERSTANDING. DENIES PAIN/DISCOMFORT AT THIS TIME. ALL NEEDS ARE MET. CHEST RISING EQUALLY/BILATERALLY. SPO2 97% ON ROOM AIR. NO SIGNIFICANT CHANGES RECORDER THROUGHOUT THE DAY. VS WNL. WILL ENDORSE TO THE RENEWALS MANAGER NURSE FOR DARVIN.
--- NOTE | 2018-03-31 19:20 | NUR ---
MS/RN NOTES RECEIVED PT. LYING IN BED. PT. IS AWAKE, ALERT AND ORIENTED X2 WITH GARBLED SPEECH. BREATHING EVEN AND UNLABORED ON ROOM AIR. NO SOB, RESPIRATORY DISTRESS OR S/S OF PAIN NOTED AT THIS TIME. PT. WITH LEFT FOREARM PERIPHERAL IV PRESENT, PATENT AND INTACT ADMINISTERING TO PT. NS @ 75ML/HR. SEIZURE PRECAUTIONS IMPLEMENTED AND IN PLACE. BED LOCKED AND IN LOWEST POSITION, SIDE RAILS UP X3, BED ALARM ON, CALL LIGHT WITHIN REACH, WILL CONTINUE TO MONITOR.
[2018-03-31 20:00] VITALS: BP 110/69
[2018-03-31] MEDS: HYDROCODONE/APAP 5/325MG 1 EACH TABLET PO PRN (23:59)
[2018-04-01] MEDS: LEVETIRACETAM (500MG) 1,000 MG in IV NS 0.9% 100 ML IV SCH (02:06)
[2018-04-01] MEDS: IPRATROPIUM NEB FS 0.5 MG/2.5 ML AMPUL.NEB NEB SCH ×4 (02:46→15:30)
[2018-04-01] MEDS: ALBUTEROL HALF STRENGTH 1.25 MG/3 ML VIAL.NEB NEB SCH ×4 (02:46→15:30)
[2018-04-01] MEDS: VANCOMYCIN 1 GM in IV D5W 250 ML IV SCH ×2 (05:13→13:49)
[2018-04-01] MEDS: PIPERACILLIN /TAZOBACTAM 3.375 G in IV D5W 50 ML IV SCH ×2 (06:16→12:54)
--- NOTE | 2018-04-01 06:38 | NUR ---
MS/RN NOTES PT. IS LYING IN BED. PT. IS AWAKE, ALERT AND ORIENTED X2 WITH GARBLED SPEECH. BREATHING EVEN AND UNLABORED ON ROOM AIR. NO SOB, RESPIRATORY DISTRESS OR S/S OF PAIN NOTED AT THIS TIME. PT. WITH LEFT FOREARM PERIPHERAL IV PRESENT, PATENT AND INTACT ADMINISTERING TO PT. NS @ 75ML/HR. SAFETY AND SEIZURE PRECAUTIONS IMPLEMENTED AND IN PLACE. ALL PT. NEEDS MET. PT. ENCOURAGED TO TURN AND REPOSITION Q2H AND NEEDED. BED LOCKED AND IN LOWEST POSITION, SIDE RAILS UP X3, BED ALARM ON, CALL LIGHT WITHIN REACH, WILL ENDORSE TO DAYSHIFT NURSE FOR CONTINUITY OF CARE.
[2018-04-01 06:39] LABS: BASOPHILS % (AUTO) 0.4 % (0.0-2.0); EOSINOPHILS % (AUTO) 5.4 % (0.0-6.0); HEMATOCRIT 39 % (39-51); LYMPHOCYTES % (AUTO) 27.6 % (20.0-44.0); MEAN CORPUSCULAR HGB CONC 33 g/dl (31.0-36.0); MEAN CORPUSCULAR VOLUME 87 fL (80-96); MONOCYTES % (AUTO) 8.9 % (2.0-12.0); NEUTROPHILS # (AUTO) 6.3 /CMM (1.8-8.9); NEUTROPHILS % (AUTO) 57.7 % (43.0-81.0); PLATELET COUNT (AUTO) 245 /CMM (150-450); RDW COEFFICIENT OF VARIATION 13.6 (11.5-15.0); RED BLOOD CELL COUNT(AUTO) 4.51 MIL/uL (4.5-6.0); WHITE BLOOD COUNT (AUTO) 10.9 K/uL (4.3-11.0)
[2018-04-01 06:59] LABS: CALCIUM, SERUM 8.5 mg/dL (8.5-10.1); CREATININE 0.7 mg/dL (0.6-1.3); POTASSIUM 3.7 mmol/L (3.5-5.1)
--- NOTE | 2018-04-01 07:28 | NUR ---
MS RN OPENING NOTE RECEIVED BEDSIDE REPORT ON THE PATIENT. PATIENT IS A/O X2-3, COOPERATIVE, PRESENTS WITH GARBLED SPEECH. PATIENT IS ASLEEP, EASILY AWAKEN IN BED, BED IS LOCKED IN LOWEST POSITION, SIDE RAILS UP X3, BED ALARM IS ON. PATIENT IS AMBULATORY WITH ASSIST.CALL LIGHT WITHIN REACH. EDUCATED TO CALL FOR ASSISTANCE USING THE CALL LIGHT AND VERBALIZED UNDERSTANDING. DENIES PAIN/DISCOMFORT AT THIS TIME. ALL NEEDS ARE MET. CHEST RISING EQUALLY/BILATERALLY. SPO2 97% ON ROOM AIR. GARNER CATHETER DRAINING CLEAR, YELLOW URINE. WILL DISCUSS WITH THE HOSPITALIST IF GARNER CAN BE REMOVED. WILL CONTINUE TO ASSESS/MONITOR THROUGHOUT THE SHIFT.
[2018-04-01] MEDS: ACETYLCYSTEINE 10% SOLN 400 MG/4 ML VIAL NEB SCH ×2 (07:56→15:30)
[2018-04-01 08:00] VITALS: BP 100/63
--- NOTE | 2018-04-01 08:47 | NUR ---
Per Adebayo Campuzano FRUIT LOADER MACHINE OPERATOR remove Torres catheter. Torres catheter removed by Rn in presence of JAYME Kimball. PAtient tolerated procedure well.
[2018-04-01] MEDS ORDERED: LEVETIRACETAM SOL (5 ML) 100 MG/ML UDC PO SCH (09:00)
[2018-04-01] MEDS: LACTOBACILLUS RHAMNOSUS GG 1 EACH CAP.SPRINK PO SCH (09:52)
[2018-04-01] MEDS: PANTOPRAZOLE 40 MG VIAL IV SCH (09:53)
[2018-04-01] MEDS: ENOXAPARIN SODIUM 40 MG/0.4 ML DISP.SYRIN SQ SCH (10:03)
[2018-04-01 16:00] VITALS: BP 113/78
--- NOTE | 2018-04-01 16:10 | NUR ---
DISCHARGE ORDER RECEIVED. DISCHARGE EDUCATION PROVIDED TO PATIENT/MOTHER AT THE BEDSIDE. ALL BELONGINGS ARE ACCOUNTED FOR. BELONGINGS LIST SIGNED. IV CATHETER REMOVED WITH THE TIP INTACT. OCLUSIVE DRESSING APPLIED. PATIENT TOLERATED PROCEDURE WELL. PRESCRIPTION GIVEN TO THE MOTHER. SMALL SCAB PRESENT ON THE NOSE. OTHERWISE, SKIN IS INTACT, FREE OF ANY DETERIORATIONS. PICTURE OF THE FACE TAKEN AND PLACE IN THE CHART. PATIENT LEFT THE HOSPITAL IN STABLE CONDITION ACCOMPANIED BY THE MOTHER, MATT MONTENEGRO.
== END 2018-04-01 16:00 | disposition home or self-care (01) | DRG 720 ==
LOC: ER 08:54 → ICU 10:49 → TELE 03-30 15:06 → MED 03-31 09:52
PROVIDERS: ADMIT Hospitalist; ATTEND Hospitalist
PROC: 5A1935Z Respiratory Ventilation, Less than 24 Consecutive Hours (ICD-10-PCS; principal; 2018-03-28)
PROC: 0BH17EZ Insertion of Endotracheal Airway into Trachea, Via Natural or Artificial Opening (ICD-10-PCS; principal; 2018-03-28)
DX: A41.9 Sepsis, unspecified organism (principal); J96.01 Acute respiratory failure with hypoxia; N17.0 Acute kidney failure with tubular necrosis; J69.0 Pneumonitis due to inhalation of food and vomit; J15.6 Pneumonia due to other Gram-negative bacteria; J15.9 Unspecified bacterial pneumonia; J90 Pleural effusion, not elsewhere classified; G40.901 Epilepsy, unspecified, not intractable, with status epilepticus; W34.00XS Accidental discharge from unspecified firearms or gun, sequela; Z79.899 Other long term (current) drug therapy; Z91.14 Patient's other noncompliance with medication regimen; F17.200 Nicotine dependence, unspecified, uncomplicated; E87.2 Acidosis; E16.2 Hypoglycemia, unspecified; F12.21 Cannabis dependence, in remission; J98.11 Atelectasis; J98.01 Acute bronchospasm; T17.990A Other foreign object in respiratory tract, part unspecified in causing asphyxiation, initial encounter; X58.XXXA Exposure to other specified factors, initial encounter; Y92.009 Unspecified place in unspecified non-institutional (private) residence as the place of occurrence of the external cause; E44.1 Mild protein-calorie malnutrition
CPT/HCPCS: 31720; 36415; 36600; 70450-TC; 71045-TC; 80048-TC; 80053-TC; 80061-TC; 80076-TC; 80202-TC; 81000-TC; 82803-TC; 83605-TC; 83735-TC; 84100-TC; 84443-TC; 85025-TC; 85730-TC; 87040-TC; 87070-TC; 87081-TC; 92611-TC; 94002-TC; 94003-TC; 94762-TC; 94799-TC; A4606; C1751; C9113; J0330; J1650; J1953; J2060; J2543; J3370; J3480; J3490; J7030; J7050; J7060; Z7610

== ENCOUNTER 2024-11-04 18:27 | Emergency (ER) | payer MEDICAID ==
[~2024-11-04] VITALS: Ht 170.2 cm; Wt 78.9 kg
[~2024-11-04 18:27] MED LIST changes: +LEVE1000 PO; -LEVE250T2 PO; -LEVO750T21 PO; +MIRT-90 PO; -MIRT15TA7 PO
[2024-11-04 18:50] LABS: BASOPHILS # (AUTO) 0.1 K/uL (0.0-0.2); BASOPHILS % (AUTO) 0.8 % (0.0-2.0); EOSINOPHILS # (AUTO) 0.1 K/uL (0.0-0.7); HEMATOCRIT 39 % (39-51); LYMPHOCYTES # (AUTO) 3.2 K/uL (0.8-4.8); LYMPHOCYTES % (AUTO) 27.6 % (20.0-44.0); MEAN CORPUSCULAR HEMOGLOBIN 30 PG (26.0-33.0); MEAN CORPUSCULAR HGB CONC 33 g/dl (31.0-36.0); MEAN CORPUSCULAR VOLUME 89 fL (80-96); MONOCYTES # (AUTO) 1.2 K/uL (0.1-1.30); MONOCYTES % (AUTO) 10.6 % (2.0-12.0); PLATELET COUNT (AUTO) 251 K/uL (150-450); RED BLOOD CELL COUNT(AUTO) 4.37 MIL/uL (4.5-6.0); WHITE BLOOD COUNT (AUTO) 11.6 K/uL (4.3-11.0)
[2024-11-04] MEDS: IV NS 0.9% 1,000 ML BAG IV ONE (18:57)
[2024-11-04 19:04] LABS: VALPROIC ACID 24 ug/mL (50-100)
[2024-11-04 19:13] LABS: ALANINE AMINOTRANSFERASE 19 U/L (12-78); ALBUMIN 3.9 g/dL (3.4-5.0); ALCOHOL, BLOOD < 3 mg/dL (0-10); ALKALINE PHOSPHATASE 88 U/L (46-116); ASPARTATE AMINOTRANSFERASE 20 U/L (15-37); BILIRUBIN,DIRECT 0.1 mg/dL (0.0-0.2); BILIRUBIN,TOTAL 0.1 mg/dL (0.2-1.0); CALCIUM, SERUM 8.7 mg/dL (8.5-10.1); CARBON DIOXIDE 24 mmol/L (21-32); CHLORIDE 97 mmol/L (98-107); CREATININE 0.9 mg/dL (0.6-1.3); GLUCOSE 101 mg/dL (74-106); POTASSIUM 3.7 mmol/L (3.5-5.1); SODIUM SERUM 134 mmol/L (136-145); TOTAL PROTEIN, SERUM 7.7 g/dL (6.4-8.2); UREA NITROGEN, BLOOD 11 mg/dL (7-18)
[2024-11-04 19:16] LABS: AMPHETAMINE, URINE NEGATIVE (NEGATIVE); BARBITURATE, URINE NEGATIVE (NEGATIVE); BENZODIAZEPINE, URINE NEGATIVE (NEGATIVE); COCCAINE, URINE NEGATIVE (NEGATIVE); OPIATE, URINE NEGATIVE (NEGATIVE); PHENCYCLIDINE SCREEN,URINE NEGATIVE (NEGATIVE)
[2024-11-04 19:26] LABS: CANNABINOID, URINE POSITIVE (NEGATIVE)
[2024-11-05 02:02] VITALS: BP 130/99; TEMP 98.6; O2SAT 98
== END 2024-11-05 02:03 | disposition home or self-care (01) ==
LOC: ER 18:35
DX: G40.909 Epilepsy, unspecified, not intractable, without status epilepticus (principal); R00.0 Tachycardia, unspecified; R06.83 Snoring; R40.0 Somnolence; Z79.899 Other long term (current) drug therapy; Z87.820 Personal history of traumatic brain injury
CPT/HCPCS: 99291; 96360; 93005; 70450; 85025; 80048; 80076; 36415; 80164; 80320; 80307; J7030; G0480

== ENCOUNTER 2024-12-06 16:20 | Emergency (ER) | payer MEDICAID ==
[~2024-12-06] VITALS: Ht 167.6 cm; Wt 72.6 kg
[2024-12-06 17:24] LABS: BASOPHILS # (AUTO) 0.1 K/uL (0.0-0.2); BASOPHILS % (AUTO) 0.4 % (0.0-2.0); EOSINOPHILS # (AUTO) 0.1 K/uL (0.0-0.7); EOSINOPHILS % (AUTO) 0.6 % (0.0-6.0); HEMATOCRIT 43 % (39-51); HEMOGLOBIN 14.2 g/dL (13.5-17.5); LYMPHOCYTES # (AUTO) 2.2 K/uL (0.8-4.8); LYMPHOCYTES % (AUTO) 13.7 % (20.0-44.0); MEAN CORPUSCULAR HEMOGLOBIN 30 PG (26.0-33.0); MEAN CORPUSCULAR HGB CONC 33 g/dl (31.0-36.0); MEAN CORPUSCULAR VOLUME 90 fL (80-96); MONOCYTES % (AUTO) 6.3 % (2.0-12.0); NEUTROPHILS # (AUTO) 12.4 K/uL (1.8-8.9); PLATELET COUNT (AUTO) 229 K/uL (150-450); RED BLOOD CELL COUNT(AUTO) 4.73 MIL/uL (4.5-6.0); RED CELL DISTRIBUTION WIDTH 14.7 % (11.5-15.0); WHITE BLOOD COUNT (AUTO) 15.7 K/uL (4.3-11.0)
[2024-12-06] MEDS ORDERED: LEVETIRACETAM (250 MG) 250 MG TABLET ONE (17:26)
[2024-12-06] MEDS ORDERED: PHENYTOIN EXTENDED RELEASE 100 MG CAPSULE PO ONE (17:26)
[2024-12-06] MEDS ORDERED: LACOSAMIDE ORAL SOLN 50 MG/5 ML UDC ONE (17:26)
[2024-12-06] MEDS: PHENYTOIN EXTENDED RELEASE 100 MG CAPSULE PO ONE (17:37)
[2024-12-06 17:38] LABS: INR 0.97 (0.91-1.10); PARTIAL THROMBOPLASTIN TIME 26.1 SEC (24.3-34.3)
[2024-12-06] MEDS: LACOSAMIDE ORAL SOLN 50 MG/5 ML UDC PO SCH (17:38)
[2024-12-06] MEDS: LEVETIRACETAM (250 MG) 250 MG TABLET PO ONE (17:38)
[2024-12-06 17:44] LABS: ALANINE AMINOTRANSFERASE 18 U/L (12-78); ALBUMIN 3.9 g/dL (3.4-5.0); ALKALINE PHOSPHATASE 86 U/L (46-116); ASPARTATE AMINOTRANSFERASE 16 U/L (15-37); BILIRUBIN,DIRECT 0.1 mg/dL (0.0-0.2); BILIRUBIN,TOTAL 0.2 mg/dL (0.2-1.0); CALCIUM, SERUM 9.3 mg/dL (8.5-10.1); CARBON DIOXIDE 29 mmol/L (21-32); CHLORIDE 101 mmol/L (98-107); CREATININE 0.8 mg/dL (0.6-1.3); GLUCOSE 85 mg/dL (74-106); POTASSIUM 3.7 mmol/L (3.5-5.1); SODIUM SERUM 137 mmol/L (136-145); TOTAL PROTEIN, SERUM 7.4 g/dL (6.4-8.2); UREA NITROGEN, BLOOD 7 mg/dL (7-18)
[2024-12-06 17:46] LABS: ALCOHOL, BLOOD < 3 mg/dL (0-10)
[2024-12-06 20:40] VITALS: BP 117/86; TEMP 97.9; O2SAT 99
[2024-12-07 17:26] LABS: PHENYTOIN (DILANTIN) 1.2 ug/ml (10.0-20.0)
== END 2024-12-06 20:44 | disposition home or self-care (01) ==
LOC: ER 16:34
DX: G40.909 Epilepsy, unspecified, not intractable, without status epilepticus (principal); Z79.899 Other long term (current) drug therapy
CPT/HCPCS: 36415; 80048-TC; 80076-TC; 80164-TC; 80185-TC; 82962-TC; 85025-TC; 85730-TC; G0480

== ENCOUNTER 2024-12-23 04:28 | Inpatient (IN) | payer MEDICAID ==
[~2024-12-23] VITALS: Ht 175.3 cm; Wt 69.4 kg
[2024-12-23 05:27] LABS: BASOPHILS # (AUTO) 0.1 K/uL (0.0-0.2); BASOPHILS % (AUTO) 0.6 % (0.0-2.0); EOSINOPHILS # (AUTO) 0.3 K/uL (0.0-0.7); EOSINOPHILS % (AUTO) 2.8 % (0.0-6.0); HEMATOCRIT 41 % (39-51); HEMOGLOBIN 13.7 g/dL (13.5-17.5); LYMPHOCYTES # (AUTO) 2.6 K/uL (0.8-4.8); LYMPHOCYTES % (AUTO) 25.1 % (20.0-44.0); MEAN CORPUSCULAR HEMOGLOBIN 30 PG (26.0-33.0); MEAN CORPUSCULAR HGB CONC 34 g/dl (31.0-36.0); MEAN CORPUSCULAR VOLUME 89 fL (80-96); MONOCYTES % (AUTO) 9.4 % (2.0-12.0); NEUTROPHILS # (AUTO) 6.6 K/uL (1.8-8.9); NEUTROPHILS % (AUTO) 62.1 % (43.0-81.0); PLATELET COUNT (AUTO) 263 K/uL (150-450); RED BLOOD CELL COUNT(AUTO) 4.61 MIL/uL (4.5-6.0); RED CELL DISTRIBUTION WIDTH 14.6 % (11.5-15.0); WHITE BLOOD COUNT (AUTO) 10.6 K/uL (4.3-11.0)
[2024-12-23 05:34] LABS: CALCIUM, SERUM 9.1 mg/dL (8.5-10.1); CREATININE 0.9 mg/dL (0.6-1.3); POTASSIUM 4.3 mmol/L (3.5-5.1)
[2024-12-23 05:40] LABS: ALBUMIN 3.7 g/dL (3.4-5.0); BILIRUBIN,DIRECT 0.1 mg/dL (0.0-0.2); BILIRUBIN,TOTAL 0.2 mg/dL (0.2-1.0); TOTAL PROTEIN, SERUM 7.2 g/dL (6.4-8.2)
[2024-12-23] MEDS ORDERED: LORAZEPAM INJ 2 MG/ML VIAL ONE (07:46)
[2024-12-23] MEDS: LORAZEPAM INJ 2 MG/ML VIAL IV ONE (07:58)
[2024-12-23] MEDS: LEVETIRACETAM (500MG) 1,000 MG in IV NS 0.9% 90 ML IV SCH ×2 (08:10→20:45)
[2024-12-23] MEDS ORDERED: ONDANSETRON HCL/PF 4 MG/2 ML VIAL ONE (08:17)
[2024-12-23] MEDS: ONDANSETRON HCL/PF - ER 4 MG/2 ML VIAL IV ONE (08:35)
[2024-12-23] MEDS ORDERED: LACO200T2 PO (08:40)
[2024-12-23] MEDS ORDERED: PANT40TA49 PO (08:40)
[2024-12-23] MEDS ORDERED: BACL10TA PO (08:40)
[2024-12-23] MEDS ORDERED: QUET50TA PO (08:40)
[2024-12-23] MEDS ORDERED: PHEN-410 PO (08:40)
[2024-12-23] MEDS ORDERED: SUCR1TAB PO (08:40)
[2024-12-23] MEDS ORDERED: DIVA-78 PO (08:40)
[2024-12-23 09:13] LABS: PHENYTOIN (DILANTIN) 1.3 ug/ml (10.0-20.0)
[2024-12-23] MEDS: PIPERACILLIN /TAZOBACTAM 3.375 G in IV D5W 50 ML IV ONE (10:30)
[2024-12-23] MEDS: PHENYTOIN SODIUM IV 1,000 MG in IV NS 0.9% 100 ML IV ONE (10:49)
[2024-12-23 13:00] VITALS: BP 112/66; TEMP 98.8; O2SAT 100
[2024-12-23] MEDS ORDERED: MAGNESIUM HYDROXIDE 30 ML UDC PO PRN (13:00)
[2024-12-23] MEDS ORDERED: ONDANSETRON HCL/PF 4 MG/2 ML VIAL IVP PRN (13:00)
[2024-12-23] MEDS ORDERED: MAG HYDROX/AL HYDROX/SIMETH 30 ML UDC PO PRN (13:00)
[2024-12-23] MEDS ORDERED: Z GUARD REMEDY 4 OZ OINT TP PRN (13:00)
[2024-12-23] MEDS: IV D5/0.45 NACL 1,000 ML IV PRN (13:19)
[2024-12-23] MEDS: VALPROATE 750 MG in IV D5W 100 ML IV SCH (13:20)
[2024-12-23] MEDS: PHENYTOIN SODIUM IV 100 MG/2ML VIAL IV SCH (13:32)
[2024-12-23] MEDS: ENOXAPARIN SODIUM 40 MG/0.4 ML DISP.SYRIN SQ SCH (13:33)
[2024-12-23 17:00] VITALS: BP 108/88; TEMP 98.1; O2SAT 96
[2024-12-23] MEDS: ACETAMINOPHEN 325 MG TABLET PO PRN (17:19)
[2024-12-23] MEDS: QUETIAPINE FUMARATE 25 MG TABLET PO SCH (17:57)
[2024-12-23] MEDS: LACOSAMIDE 200 MG in IV NS 0.9% 100 ML IV SCH (20:15)
[2024-12-23 21:00] VITALS: BP 106/69; TEMP 97.7; O2SAT 96
[2024-12-24 01:00] VITALS: BP 95/63; TEMP 98.2; O2SAT 98
[2024-12-24 05:00] VITALS: BP 99/63; TEMP 98.3; O2SAT 98
[2024-12-24 06:57] LABS: BASOPHILS # (AUTO) 0.1 K/uL (0.0-0.2); BASOPHILS % (AUTO) 0.7 % (0.0-2.0); EOSINOPHILS # (AUTO) 0.1 K/uL (0.0-0.7); EOSINOPHILS % (AUTO) 0.9 % (0.0-6.0); HEMATOCRIT 40 % (39-51); HEMOGLOBIN 13.3 g/dL (13.5-17.5); LYMPHOCYTES # (AUTO) 2.5 K/uL (0.8-4.8); LYMPHOCYTES % (AUTO) 19.7 % (20.0-44.0); MEAN CORPUSCULAR HEMOGLOBIN 30 PG (26.0-33.0); MEAN CORPUSCULAR HGB CONC 33 g/dl (31.0-36.0); MEAN CORPUSCULAR VOLUME 90 fL (80-96); MONOCYTES # (AUTO) 1.3 K/uL (0.1-1.30); MONOCYTES % (AUTO) 10.1 % (2.0-12.0); NEUTROPHILS # (AUTO) 8.7 K/uL (1.8-8.9); NEUTROPHILS % (AUTO) 68.6 % (43.0-81.0); PLATELET COUNT (AUTO) 219 K/uL (150-450); RED BLOOD CELL COUNT(AUTO) 4.47 MIL/uL (4.5-6.0); RED CELL DISTRIBUTION WIDTH 14.8 % (11.5-15.0); WHITE BLOOD COUNT (AUTO) 12.7 K/uL (4.3-11.0)
[2024-12-24 08:05] LABS: CALCIUM, SERUM 9.1 mg/dL (8.5-10.1); CREATININE 0.7 mg/dL (0.6-1.3); MAGNESIUM 2.2 mg/dL (1.8-2.4); PHOSPHORUS 3.5 mg/dL (2.5-4.9); POTASSIUM 3.9 mmol/L (3.5-5.1)
[2024-12-24] MEDS: PANTOPRAZOLE 40 MG TABLET.DR PO SCH (08:12)
[2024-12-24] MEDS: NICOTINE PATCH (14MG) 14 MG PATCH.TD24 TD SCH (08:13)
[2024-12-24 09:00] VITALS: BP 123/64; TEMP 98.8; O2SAT 98
[2024-12-24 09:21] LABS: THYROID STIMULATING HORMONE 3.78 uIU/mL (0.358-3.74)
[2024-12-24 13:00] VITALS: BP 110/77; TEMP 98.6; O2SAT 98
[2024-12-24 17:00] VITALS: BP 121/76; TEMP 98.6; O2SAT 98
[2024-12-24 21:00] VITALS: BP 120/82; TEMP 98.2; O2SAT 98
[2024-12-25 01:00] VITALS: BP 107/70; TEMP 98.2; O2SAT 98
[2024-12-25 05:00] VITALS: BP 100/73; TEMP 98.2; O2SAT 99
[2024-12-25 09:00] VITALS: BP 91/62; TEMP 98.2; O2SAT 100
[2024-12-25 13:00] VITALS: BP 104/70; TEMP 98; O2SAT 97
[2024-12-25 17:00] VITALS: BP 106/74; TEMP 98; O2SAT 99
[2024-12-25 21:00] VITALS: BP 139/97; TEMP 99; O2SAT 100
[2024-12-26 01:00] VITALS: BP 114/71; TEMP 98.8; O2SAT 97
[2024-12-26 05:00] VITALS: BP 126/63; TEMP 98.4; O2SAT 100
[2024-12-26 08:00] VITALS: BP 112/86; TEMP 98.2; O2SAT 100
[2024-12-26 09:00] VITALS: BP 112/86; TEMP 98.2; O2SAT 100
[2024-12-26] MEDS: LACOSAMIDE 50 MG TABLET PO SCH (09:29)
[2024-12-26] MEDS: LEVETIRACETAM (250 MG) 250 MG TABLET PO SCH (09:30)
[2024-12-26 13:00] VITALS: BP 118/84; TEMP 98; O2SAT 98
== END 2024-12-26 16:54 | DRG 53 ==
LOC: ER 04:35 → TELE 09:46 → TELE1 12:17 → TELE-TD 22:06 → TELE1 12-24 10:07 → MEDSG1 12-26 08:54
PROVIDERS: ATTEND Nurse Practitioner Acute Care
DX: G40.911 Epilepsy, unspecified, intractable, with status epilepticus (principal); G93.89 Other specified disorders of brain; E78.1 Pure hyperglyceridemia; Z20.822 Contact with and (suspected) exposure to COVID-19; W34.00XS Accidental discharge from unspecified firearms or gun, sequela; Z79.899 Other long term (current) drug therapy; F20.9 Schizophrenia, unspecified; Z98.890 Other specified postprocedural states; M62.421 Contracture of muscle, right upper arm; R13.10 Dysphagia, unspecified; Z87.891 Personal history of nicotine dependence; F12.90 Cannabis use, unspecified, uncomplicated
CPT/HCPCS: 36415; 70450-TC; 71045-TC; 80048-TC; 80061-TC; 80076-TC; 80164-TC; 80185-TC; 83735-TC; 84100-TC; 84443-TC; 85025-TC; 87081-TC; A4223; G0378; J1165; J1650; J1953; J2060; J2405; J2543; J3490; J7030; J7050; J7060

== ENCOUNTER 2025-04-29 17:23 | Inpatient (IN) | payer MEDICAID ==
[~2025-04-29] VITALS: Ht 175.3 cm; Wt 71.7 kg
[~2025-04-29 17:23] MED LIST changes: +BACL10TA PO; -BACL20TA PO; +DIVA-78 PO; +LACO200T2 PO; -MIRT-90 PO; +PANT40TA49 PO; +PHEN-410 PO; +QUET50TA PO; +SUCR1TAB PO
[2025-04-29] MEDS: LEVETIRACETAM (500MG) 1,500 MG in IV NS 0.9% 85 ML IV ONE (18:00)
[2025-04-29 18:06] LABS: BASOPHILS # (AUTO) 0.1 K/uL (0.0-0.2); BASOPHILS % (AUTO) 0.6 % (0.0-2.0); EOSINOPHILS # (AUTO) 0.1 K/uL (0.0-0.7); EOSINOPHILS % (AUTO) 0.7 % (0.0-6.0); HEMATOCRIT 40 % (39-51); HEMOGLOBIN 13.4 g/dL (13.5-17.5); LYMPHOCYTES # (AUTO) 2.5 K/uL (0.8-4.8); LYMPHOCYTES % (AUTO) 20.4 % (20.0-44.0); MEAN CORPUSCULAR HEMOGLOBIN 29 PG (26.0-33.0); MEAN CORPUSCULAR HGB CONC 33 g/dl (31.0-36.0); MEAN CORPUSCULAR VOLUME 89 fL (80-96); MONOCYTES # (AUTO) 0.9 K/uL (0.1-1.30); MONOCYTES % (AUTO) 7.6 % (2.0-12.0); NEUTROPHILS # (AUTO) 8.7 K/uL (1.8-8.9); NEUTROPHILS % (AUTO) 70.7 % (43.0-81.0); PLATELET COUNT (AUTO) 248 K/uL (150-450); RED BLOOD CELL COUNT(AUTO) 4.57 MIL/uL (4.5-6.0); RED CELL DISTRIBUTION WIDTH 14.6 % (11.5-15.0); WHITE BLOOD COUNT (AUTO) 12.3 K/uL (4.3-11.0)
[2025-04-29 18:15] LABS: CALCIUM, SERUM 8.9 mg/dL (8.5-10.1); CARBON DIOXIDE 28 mmol/L (21-32); CHLORIDE 97 mmol/L (98-107); CREATININE 0.7 mg/dL (0.6-1.3); GLUCOSE 100 mg/dL (74-106); POTASSIUM 3.5 mmol/L (3.5-5.1); SODIUM SERUM 137 mmol/L (136-145); UREA NITROGEN, BLOOD 6 mg/dL (7-18)
[2025-04-29 18:19] LABS: PHENYTOIN (DILANTIN) 3.7 ug/ml (10.0-20.0); VALPROIC ACID 10 ug/mL (50-100)
[2025-04-29 18:20] LABS: ALANINE AMINOTRANSFERASE 18 U/L (12-78); ALBUMIN 3.9 g/dL (3.4-5.0); ALKALINE PHOSPHATASE 82 U/L (46-116); ASPARTATE AMINOTRANSFERASE 16 U/L (15-37); BILIRUBIN,DIRECT 0.1 mg/dL (0.0-0.2); BILIRUBIN,TOTAL 0.3 mg/dL (0.2-1.0); TOTAL PROTEIN, SERUM 7.5 g/dL (6.4-8.2)
[2025-04-29 18:23] LABS: LACTIC ACID 3.5 mmol/L (0.4-2.0)
[2025-04-29 18:27] LABS: ALCOHOL, BLOOD < 3 mg/dL (0-10)
[2025-04-29] MEDS: IV NS 0.9% 1,000 ML BAG IV ONE (20:20)
[2025-04-29 21:01] LABS: AMPHETAMINE, URINE NEGATIVE (NEGATIVE); BARBITURATE, URINE NEGATIVE (NEGATIVE); BENZODIAZEPINE, URINE POSITIVE (NEGATIVE); CANNABINOID, URINE POSITIVE (NEGATIVE); COCCAINE, URINE NEGATIVE (NEGATIVE); OPIATE, URINE NEGATIVE (NEGATIVE); PHENCYCLIDINE SCREEN,URINE NEGATIVE (NEGATIVE)
[2025-04-29] MEDS ORDERED: ONDANSETRON HCL/PF 4 MG/2 ML VIAL IVP PRN (22:00)
[2025-04-29] MEDS ORDERED: hydrALAZINE HCL IV 20 MG VIAL IV PRN (22:00)
[2025-04-29] MEDS ORDERED: MORPHINE SULFATE INJ 2 MG/ML DISP.SYRIN IV PRN (22:00)
[2025-04-29] MEDS ORDERED: ACETAMINOPHEN 325 MG TABLET PO PRN (22:00)
[2025-04-29 22:30] VITALS: BP 129/93; TEMP 98.1; O2SAT 99
[2025-04-29] MEDS ORDERED: PHENYTOIN SODIUM PO SCH (23:30)
[2025-04-29] MEDS ORDERED: LORAZEPAM INJ 2 MG/ML VIAL IV PRN (23:30)
[2025-04-29] MEDS: DIVALPROEX SODIUM 500 MG TABLET.DR PO SCH (23:32)
[2025-04-29] MEDS: BACLOFEN (10 MG) 10 MG TABLET PO SCH (23:34)
[2025-04-30] VITALS: BP 111/83; TEMP 98; O2SAT 100
[2025-04-30 04:00] VITALS: BP 103/76; TEMP 98.2; O2SAT 100
[2025-04-30 07:26] LABS: BASOPHILS # (AUTO) 0.1 K/uL (0.0-0.2); BASOPHILS % (AUTO) 0.4 % (0.0-2.0); EOSINOPHILS # (AUTO) 0.1 K/uL (0.0-0.7); EOSINOPHILS % (AUTO) 0.7 % (0.0-6.0); HEMATOCRIT 43 % (39-51); HEMOGLOBIN 13.8 g/dL (13.5-17.5); LYMPHOCYTES # (AUTO) 2.6 K/uL (0.8-4.8); LYMPHOCYTES % (AUTO) 14.8 % (20.0-44.0); MEAN CORPUSCULAR HEMOGLOBIN 29 PG (26.0-33.0); MEAN CORPUSCULAR HGB CONC 32 g/dl (31.0-36.0); MEAN CORPUSCULAR VOLUME 90 fL (80-96); MONOCYTES # (AUTO) 1.5 K/uL (0.1-1.30); MONOCYTES % (AUTO) 8.7 % (2.0-12.0); NEUTROPHILS # (AUTO) 13.1 K/uL (1.8-8.9); NEUTROPHILS % (AUTO) 75.4 % (43.0-81.0); PLATELET COUNT (AUTO) 191 K/uL (150-450); RED BLOOD CELL COUNT(AUTO) 4.75 MIL/uL (4.5-6.0); RED CELL DISTRIBUTION WIDTH 14.9 % (11.5-15.0); WHITE BLOOD COUNT (AUTO) 17.3 K/uL (4.3-11.0)
[2025-04-30 08:00] VITALS: BP 105/70; TEMP 98; O2SAT 97
[2025-04-30 08:31] LABS: PHENYTOIN (DILANTIN) 2.5 ug/ml (10.0-20.0)
[2025-04-30 08:35] LABS: ALBUMIN 3.3 g/dL (3.4-5.0); BILIRUBIN,TOTAL 0.6 mg/dL (0.2-1.0); CALCIUM, SERUM 8.6 mg/dL (8.5-10.1); CREATININE 0.5 mg/dL (0.6-1.3); MAGNESIUM 2.3 mg/dL (1.8-2.4); PHOSPHORUS 2.9 mg/dL (2.5-4.9); POTASSIUM 3.8 mmol/L (3.5-5.1)
[2025-04-30] MEDS: LACOSAMIDE 50 MG TABLET PO SCH ×2 (08:52→21:22)
[2025-04-30] MEDS: PANTOPRAZOLE 40 MG TABLET.DR PO SCH (08:52)
[2025-04-30] MEDS: LEVETIRACETAM (250 MG) 250 MG TABLET PO SCH ×2 (08:52→21:22)
[2025-04-30] MEDS: SUCRALFATE 1 G TABLET PO SCH (08:52)
[2025-04-30] MEDS: QUETIAPINE FUMARATE 25 MG TABLET PO SCH ×2 (08:52→21:23)
[2025-04-30] MEDS: HEPARIN SODIUM, PORCINE 5000 UNITS/1 ML VIAL SQ SCH (08:54)
[2025-04-30] MEDS: MUPIROCIN OINT 2% 22 GM TUBE TP SCH ×2 (10:42)
[2025-04-30 12:00] VITALS: BP 106/77; TEMP 98.2; O2SAT 96
[2025-04-30] MEDS ORDERED: PHENYTOIN EXTENDED RELEASE 100 MG CAPSULE PO SCH (14:00)
[2025-04-30] MEDS: DIVALPROEX SODIUM 250 MG TABLET.DR PO ONE (14:39)
[2025-04-30 16:00] VITALS: BP 101/70; TEMP 98.3; O2SAT 96
[2025-04-30] MEDS: DIVALPROEX SODIUM 250 MG TABLET.DR PO SCH (16:24)
[2025-04-30] MEDS: AMMONIUM LACTATE 227 GM BOTTLE TP SCH (16:24)
[2025-04-30] MEDS: BACLOFEN (10 MG) 10 MG TABLET PO SCH (16:24)
[2025-04-30 20:00] VITALS: BP 119/86; TEMP 99; O2SAT 98
[2025-04-30] MEDS ORDERED: DIVALPROEX SODIUM 500 MG TABLET.DR PO SCH (21:00)
[2025-04-30] MEDS: PHENYTOIN EXTENDED RELEASE 100 MG CAPSULE PO SCH (22:12)
[2025-05-01] VITALS: BP 120/85; TEMP 98.6; O2SAT 94
[2025-05-01 04:00] VITALS: BP 116/74; TEMP 98.6; O2SAT 95
[2025-05-01 07:31] LABS: BASOPHILS # (AUTO) 0.1 K/uL (0.0-0.2); BASOPHILS % (AUTO) 1.2 % (0.0-2.0); EOSINOPHILS # (AUTO) 0.4 K/uL (0.0-0.7); HEMATOCRIT 42 % (39-51); HEMOGLOBIN 14.1 g/dL (13.5-17.5); LYMPHOCYTES # (AUTO) 2.9 K/uL (0.8-4.8); MEAN CORPUSCULAR HEMOGLOBIN 30 PG (26.0-33.0); MEAN CORPUSCULAR HGB CONC 34 g/dl (31.0-36.0); MEAN CORPUSCULAR VOLUME 88 fL (80-96); MONOCYTES # (AUTO) 1.1 K/uL (0.1-1.30); MONOCYTES % (AUTO) 11.1 % (2.0-12.0); NEUTROPHILS # (AUTO) 5.1 K/uL (1.8-8.9); NEUTROPHILS % (AUTO) 53.7 % (43.0-81.0); PLATELET COUNT (AUTO) 249 K/uL (150-450); RED BLOOD CELL COUNT(AUTO) 4.69 MIL/uL (4.5-6.0); RED CELL DISTRIBUTION WIDTH 14.7 % (11.5-15.0); WHITE BLOOD COUNT (AUTO) 9.5 K/uL (4.3-11.0)
[2025-05-01 07:38] LABS: CALCIUM, SERUM 8.7 mg/dL (8.5-10.1); CREATININE 0.6 mg/dL (0.6-1.3); MAGNESIUM 2.3 mg/dL (1.8-2.4); PHOSPHORUS 3.7 mg/dL (2.5-4.9); POTASSIUM 3.8 mmol/L (3.5-5.1)
[2025-05-01 08:00] VITALS: BP 106/68; TEMP 97.7; O2SAT 95
[2025-05-01] MEDS ORDERED: PHEN100C4 PO (11:06)
[2025-05-01] MEDS ORDERED: DIVA500T2 PO (11:06)
[2025-05-01] MEDS: DIVALPROEX SODIUM 500 MG TABLET.DR PO ONE (11:19)
[2025-05-01] MEDS: PHENYTOIN EXTENDED RELEASE 100 MG CAPSULE PO ONE (11:22)
[2025-05-01 13:12] LABS: APPEARANCE,URINE CLEAR (CLEAR); BILIRUBIN,URINE NEGATIVE (NEGATIVE); BLOOD, URINE 1+ Ery/uL (NEGATIVE); COLOR,URINE YELLOW (YELLOW); KETONES,URINE TRACE mg/dL (NEGATIVE); LEUKOCYTE ESTERASE ,URINE NEGATIVE (NEGATIVE); NITRITE, URINE NEGATIVE (NEGATIVE); PH,URINE 6.5 (5.0-8.0); PROTEIN,URINE NEGATIVE (NEGATIVE); UGLUCOSE NEGATIVE (NEGATIVE); UROBILINOGEN,URINE 0.2 EU/dL (0.2)
[2025-05-01 14:32] LABS: ADD URINE CULTURE YES; BACTERIA,URINE Many /HPF (None Seen); MUCUS,URINE Many /LPF (None Seen); SQUAMOUS EPITHELIAL CELL,UR Few /HPF (None Seen)
[2025-05-01] MEDS ORDERED: CEFT1VIA15 IV (15:19)
[2025-05-01] MEDS ORDERED: SULF1TAB48 PO (15:37)
[2025-05-01] MEDS ORDERED: CEFTRIAXONE 1 G in IV D5W 50 ML IV SCH (16:00)
[2025-05-01 17:15] VITALS: BP 111/70; TEMP 98.4; O2SAT 99
== END 2025-05-01 17:24 | DRG 101 ==
LOC: ER 17:25 → TELE1 22:04 → MEDSG1 05-01 09:25
PROVIDERS: ADMIT Internal Medicine; ATTEND Nurse Practitioner Family
DX: G40.401 Other generalized epilepsy and epileptic syndromes, not intractable, with status epilepticus (principal); E87.20 Acidosis, unspecified; G91.9 Hydrocephalus, unspecified; N39.0 Urinary tract infection, site not specified; L97.319 Non-pressure chronic ulcer of right ankle with unspecified severity; D72.829 Elevated white blood cell count, unspecified; E86.0 Dehydration; F20.9 Schizophrenia, unspecified; V89.2XXS Person injured in unspecified motor-vehicle accident, traffic, sequela; B96.89 Other specified bacterial agents as the cause of diseases classified elsewhere; R62.59 Other lack of expected normal physiological development in childhood; G93.89 Other specified disorders of brain; R82.5 Elevated urine levels of drugs, medicaments and biological substances; Z79.899 Other long term (current) drug therapy
CPT/HCPCS: 36415; 70450-TC; 71045-TC; 80048-TC; 80053-TC; 80076-TC; 80164-TC; 80185-TC; 81001; 82962-TC; 83605-TC; 83735-TC; 84100-TC; 85025-TC; 87040-TC; 87081-TC; A4223; G0378; G0480; J0696; J1644; J1953; J7030; J7060

== ENCOUNTER 2025-11-06 16:38 | Inpatient (IN) | payer MEDICAID ==
[~2025-11-06] VITALS: Ht 175.3 cm; Wt 68.9 kg
[~2025-11-06 16:38] MED LIST changes: -DIVA-78 PO; +DIVA500T2 PO; -PHEN-410 PO; +PHEN100C4 PO; +SULF1TAB48 PO
[2025-11-06] MEDS: LEVETIRACETAM (500MG) 1,000 MG in IV NS 0.9% 90 ML IV STA (16:55)
[2025-11-06 17:24] LABS: PLATELET COUNT (AUTO) 219 K/uL (150-450); RED BLOOD CELL COUNT(AUTO) 4.40 MIL/uL (4.5-6.0); RED CELL DISTRIBUTION WIDTH 14.7 % (11.5-15.0); WHITE BLOOD COUNT (AUTO) 9.9 K/uL (4.3-11.0)
[2025-11-06 17:31] LABS: CALCIUM, SERUM 8.4 mg/dL (8.5-10.1); CREATININE 0.6 mg/dL (0.6-1.3); SODIUM SERUM 135 mmol/L (136-145); UREA NITROGEN, BLOOD 8 mg/dL (7-18)
[2025-11-06 17:36] LABS: INR 1.05 (0.91-1.10)
[2025-11-06 17:37] LABS: ALCOHOL, BLOOD < 3 mg/dL (0-10); ASPARTATE AMINOTRANSFERASE 18 U/L (15-37); TOTAL PROTEIN, SERUM 7.1 g/dL (6.4-8.2)
[2025-11-06 19:30] LABS: VALPROIC ACID 12.0 ug/mL (50-100)
[2025-11-06 19:51] LABS: PHENOBARBITAL 0.0 ug/ml (15-39)
[2025-11-06] MEDS ORDERED: phenytoin SODIUM IV 250 MG/5 ML VIAL IV ONE (20:28)
[2025-11-06] MEDS ORDERED: DIVALPROEX SODIUM 500 MG TABLET.DR PO ONE (20:49)
[2025-11-06] MEDS: DIVALPROEX SODIUM 500 MG TABLET.DR PO ONE (20:50)
[2025-11-06 21:18] LABS: AMPHETAMINE, URINE NEGATIVE (NEGATIVE); BARBITURATE, URINE NEGATIVE (NEGATIVE); COCCAINE, URINE NEGATIVE (NEGATIVE); OPIATE, URINE NEGATIVE (NEGATIVE)
[2025-11-06 21:19] LABS: BENZODIAZEPINE, URINE POSITIVE (NEGATIVE); CANNABINOID, URINE POSITIVE (NEGATIVE)
[2025-11-07] MEDS ORDERED: ONDANSETRON HCL/PF 4 MG/2 ML VIAL IVP PRN (00:30)
[2025-11-07] MEDS ORDERED: LORAZEPAM INJ 2 MG/ML VIAL IV PRN (00:30)
[2025-11-07] MEDS ORDERED: MAGNESIUM HYDROXIDE 30 ML UDC PO PRN (00:30)
[2025-11-07] MEDS ORDERED: Z GUARD REMEDY 4 OZ OINT TP PRN (00:30)
[2025-11-07] MEDS ORDERED: HYDROCODONE/APAP 5/325MG TABLET PO PRN (00:30)
[2025-11-07] MEDS ORDERED: ACETAMINOPHEN 325 MG TABLET PO PRN (00:30)
[2025-11-07] MEDS ORDERED: MAG HYDROX/AL HYDROX/SIMETH 30 ML UDC PO PRN (00:30)
[2025-11-07] MEDS ORDERED: LEVETIRACETAM (500MG) 500 MG/5 ML VIAL IV ONE (02:28)
[2025-11-07] MEDS: LEVETIRACETAM (500MG) 1,000 MG in IV NS 0.9% 90 ML IV SCH ×2 (02:42→09:05)
[2025-11-07] MEDS: IV NS 0.9% 1,000 ML IV PRN (02:42)
[2025-11-07 04:00] VITALS: BP 97/72; TEMP 97.7; O2SAT 97
[2025-11-07] MEDS ORDERED: PHENYTOIN SODIUM IV 100 MG/2ML VIAL IV SCH (05:00)
[2025-11-07 08:00] VITALS: BP 107/76; TEMP 97.8; O2SAT 99
[2025-11-07] MEDS: PHENYTOIN SODIUM IV 100 MG/2ML VIAL IV SCH (08:22)
[2025-11-07] MEDS: PANTOPRAZOLE 40 MG TABLET.DR PO SCH (08:22)
[2025-11-07] MEDS: LACOSAMIDE ORAL SOLN 50 MG/5 ML UDC PO SCH (09:05)
[2025-11-07] MEDS: DIVALPROEX SODIUM 500 MG TABLET.DR PO SCH (09:05)
[2025-11-07 12:00] VITALS: BP 100/67; TEMP 97.9; O2SAT 98
[2025-11-07] MEDS ORDERED: QUET50TA PO (15:55)
[2025-11-07] MEDS ORDERED: QUET100T PO (15:55)
[2025-11-07] MEDS ORDERED: DIVA-78 PO (15:55)
[2025-11-07] MEDS ORDERED: PHEN100C12 PO (15:55)
[2025-11-07] MEDS ORDERED: PHEN300C6 PO (15:55)
[2025-11-07 16:00] VITALS: BP 109/80; TEMP 98.1; O2SAT 97
[2025-11-07 20:00] VITALS: BP 108/79; TEMP 97.9; O2SAT 100
[2025-11-07] MEDS: TEMAZEPAM 15 MG CAPSULE PO PRN (21:39)
[2025-11-08] VITALS (7 sets, daily range): BP systolic 102–108; BP diastolic 66–79; TEMP 97.7–98.5; O2SAT 96–100
[2025-11-08 08:01] LABS: PLATELET COUNT (AUTO) 221 K/uL (150-450); RED BLOOD CELL COUNT(AUTO) 4.49 MIL/uL (4.5-6.0); RED CELL DISTRIBUTION WIDTH 14.6 % (11.5-15.0); WHITE BLOOD COUNT (AUTO) 7.7 K/uL (4.3-11.0)
[2025-11-08 08:07] LABS: FOLIC ACID 11.9 ng/mL (>3.0)
[2025-11-08 08:30] LABS: VALPROIC ACID 10.0 ug/mL (50-100)
[2025-11-08 09:10] LABS: CALCIUM, SERUM 8.2 mg/dL (8.5-10.1); CREATININE 0.4 mg/dL (0.6-1.3); PHOSPHORUS 3.7 mg/dL (2.5-4.9); SODIUM SERUM 145.0 mmol/L (136-145); UREA NITROGEN, BLOOD 11.0 mg/dL (7-18)
[2025-11-08] MEDS ORDERED: phenytoin SODIUM IV 500 MG in IV NS 0.9% 50 ML IV ONE (10:00)
[2025-11-08] MEDS: DIVALPROEX SODIUM 500 MG TABLET.DR PO SCH (13:03)
[2025-11-08] MEDS: NICOTINE PATCH (21MG) 21 MG PATCH.TD24 TD SCH (16:07)
[2025-11-08] MEDS: PHENYTOIN SODIUM IV 100 MG/2ML VIAL IV SCH (16:08)
[2025-11-08] MEDS: LORAZEPAM 1 MG TABLET PO ONE (20:11)
[2025-11-09] VITALS: BP 105/76; TEMP 97.3; O2SAT 100
[2025-11-09 04:00] VITALS: BP 113/81; TEMP 98.3; O2SAT 100
[2025-11-09 08:00] VITALS: BP 105/79; TEMP 98.1; O2SAT 99
[2025-11-09 11:03] LABS: VALPROIC ACID 45.0 ug/mL (50-100)
[2025-11-09] MEDS ORDERED: PHEN300C6 PO (11:20)
[2025-11-09] MEDS ORDERED: LEVE1000 PO (11:20)
[2025-11-09] MEDS ORDERED: BACL10TA PO (11:20)
[2025-11-09] MEDS ORDERED: SUCR1TAB PO (11:20)
[2025-11-09] MEDS ORDERED: LACO200T2 PO (11:20)
[2025-11-09] MEDS ORDERED: DIVA-78 PO (11:20)
[2025-11-09] MEDS ORDERED: QUET50TA PO (11:20)
[2025-11-09] MEDS ORDERED: QUET100T PO (11:20)
[2025-11-09] MEDS ORDERED: PHEN100C12 PO (11:20)
[2025-11-09] MEDS ORDERED: PANT40TA49 PO (11:20)
[2025-11-09 12:00] VITALS: BP 102/82; TEMP 98.1; O2SAT 100
[2025-11-12 04:12] LABS: VITAMIN B1 THIAMINE,WB 122.0 nmol/L (66.5-200.0)
== END 2025-11-09 17:12 | DRG 951 ==
LOC: ER 16:47 → MEDSG1 11-07 01:09 → TELE1 11-07 01:59
PROVIDERS: ADMIT Internal Medicine; ATTEND Internal Medicine
DX: T42.0X6A Underdosing of hydantoin derivatives, initial encounter (principal); E87.1 Hypo-osmolality and hyponatremia; G81.91 Hemiplegia, unspecified affecting right dominant side; G40.909 Epilepsy, unspecified, not intractable, without status epilepticus; F20.9 Schizophrenia, unspecified; R47.01 Aphasia; Z91.148 Patient's other noncompliance with medication regimen for other reason; Z79.899 Other long term (current) drug therapy; Y92.099 Unspecified place in other non-institutional residence as the place of occurrence of the external cause; Z98.890 Other specified postprocedural states; R32 Unspecified urinary incontinence; Z87.828 Personal history of other (healed) physical injury and trauma; F12.90 Cannabis use, unspecified, uncomplicated
CPT/HCPCS: 36415; 70450-TC; 71045-TC; 80048-TC; 80076-TC; 80164-TC; 80184; 80185-TC; 82607-TC; 83735-TC; 83921; 84100-TC; 84425; 84443-TC; 85025-TC; 85730-TC; 95819-TC; A4223; G0378; G0480; J1165; J1953; J7030